=== PATIENT | female | born 1985 | race Caucasian/White ===

== ENCOUNTER 2023-08-31 16:16 | Inpatient (IN) ==
[2023-08-31] MEDS ORDERED: SODIUM CHLORIDE 0.9% 1,000 ML IV ONE (16:29)
[2023-08-31] MEDS ORDERED: MoRPHine SULFATE 4 MG/ML 1 ML CARP\\VIAL IV STA ×2 (16:29→18:44)
--- NOTE | 2023-08-31 16:42 | Emergency Department Note ---
Impression & Plan Pulmonary embolism, DVT (deep venous thrombosis), Chest pain ED Provider Note NAME: MARIA TERESA TRIVEDI AGE: 38 SEX: F : 1985 ARRIVES VIA: Ambulance INFORMANT: Patient ED PROVIDER(S): Benjamin Landrum DO CHIEF COMPLAINT: back pain HPI: Patient is a 38-year-old female who presents the ER for mid to right upper scapula pain. Pain has been present for the past 24 hours. She denies any chest pain or shortness of breath but notes it is painful with breathing. Does have a history of previous PEs. She had a right labrum repair done initially in June and then it failed her early July. She notes when she stands for the past several weeks she has been having her feet turn blue. She denies any tingling, numbness or weakness. No belly pain, nausea, vomiting, or diarrhea. No dysuria, urgency, or frequency. Previous history of a previous PE 20 years ago. Her surgeon just placed her on Eliquis on the fourth as prophylaxis. She has been taking it since then. Mom provided the history in regards to her previous PE 20 years ago as she was at bedside ADDITIONAL HISTORY OBTAINED: Per HPI Chronic Medical/Social Conditions Affecting Care: Per HPI PAST MEDICAL HISTORY:See Below PAST SURGICAL HISTORY:See Below FAMILY HISTORY:See Below SOCIAL HISTORY:See Below HOME MEDICATIONS:See Below ALLERGIES:See Below VITALS:See Below PHYSICAL EXAMINATION: GENERAL: Sitting up in bed, alert, well appearing, well nourished, no distress, non-toxic EYE EXAM: normal conjunctiva. PERRL and EOM's grossly intact. OROPHARYNX: no exudate, no erythema, lips, buccal mucosa, and tongue normal and mucous membranes are moist NECK: supple, no nuchal rigidity, no adenopathy, non-tender LUNGS: Clear to auscultation. Normal chest wall mechanics HEART: no murmurs, S1 normal and S2 normal ABDOMEN: abdomen soft, non-tender, normo-active bowel sounds, no masses, no rebound or guarding. UPPER EXTREMITIES: upper extremities are grossly normal. LOWER EXTREMITIES: Flexion extension of the right knee and ankle intact. DPs and PTs 1 out of 4 bilaterally. Good cap refill NEURO EXAM: Normal sensorium, cranial nerves II-XII grossly intact, normal speech, no gross weakness of arms, no gross weakness of legs. MEDICAL DECISION MAKING: Patient is a 38-year-old female who presents ER for above-stated complaint. IV was established and blood work was obtained. Labs show no significant leukocytosis or anemia. BMP along with LFTs bilirubin was unremarkable. Troponin was negative. Lipase was normal. UA was clean. was negative. Duplex of the right lower extremity shows DVT. CT angio of the chest shows PEs. X-ray of the hip and pelvis shows no acute fracture. Patient was updated bedside. She denies any recent surgeries other than the right hip. No coughing up blood, urinating blood, or vomiting blood. No black or dark tarry stools. No previous brain bleeds. Patient was placed on heparin drip and bolus. She was discussed with the hospitalist Dr. Merino for further evaluation management treatment. External Records Reviewed: None Consults/Care Managements Discussions: Per [facility] Triage Nursing notes reviewed. Limited review of prior medical records performed Vital Signs: reviewed and remarkable for no significant abnormalities Differential diagnosis: Cardiac ischemia, aortic dissection, pulmonary embolism, pneumothorax, pneumonia, pericarditis, myocarditis, esophageal rupture, GERD, cholecystitis, pancreatitis, musculoskeletal, as well as other pathologies. ER treatment provided: See below Diagnostics interpreted by me include EKG and cardiac monitoring as listed below: -Cardiac Monitoring: An order was placed for continuous cardiac monitoring. The monitor shows a rate of 80 with sinus rhythm. -ECG: Sinus rhythm rate of 60 Normal axis No PVCs T wave inversion in lead III -Laboratory studies:Interpreted by me as stated above in MDM and shown below. Imaging studies: Xrays: As interpreted by me: X-ray right hip and pelvis show no acute fracture dislocation CTs show: CT angio chest shows PEs Duplex was was positive for DVT Procedures:none Critical Care: I have personally spent 31 minutes of critical care time in the direct management of this patient. This includes bedside care, interpretation of diagnostic studies, and testing, discussion with consultants, patient, and family members, and other required patient management activities. This 31 minutes is in excess of all separately billable procedures. Past Med/Surg History Social History Smoking Status: Never smoker Preferred Language: Martiniquais Feels Safe at Home: Yes Home Meds Home Medications Medication Instructions Recorded Confirmed apixaban 2.5 mg tablet (Eliquis) 2.5 mg PO BID 08/31/23 08/31/23 dexlansoprazole 60 mg 60 mg PO DAILY 08/31/23 08/31/23 capsule,biphase delayed release diazepam 5 mg tablet 5 mg PO Q6 PRN Anxiety 08/31/23 08/31/23 duloxetine 30 mg capsule,delayed mg PO 08/31/23 release epinephrine 0.3 mg/0.3 mL 0.3 mg IM UD PRN Allergic Reaction 08/31/23 08/31/23 injection, auto-injector folic acid 1 mg tablet 1 mg PO [id number] 08/31/23 08/31/23 galcanezumab-gnlm 120 mg/mL 120 mg subcut UD 08/31/23 08/31/23 subcutaneous pen injector (Emgality Pen) hydrocodone 5 mg-acetaminophen 325 1 tab PO .EVERY 4-6 HOURS PRN Pain 08/31/23 08/31/23 mg tablet hydroxychloroquine 200 mg tablet 400 mg PO DAILY 08/31/23 08/31/23 methotrexate sodium 2.5 mg tablet 20 mg PO WK 08/31/23 08/31/23 potassium chloride 20 mEq 20 meq PO DAILY 08/31/23 08/31/23 tablet,extended release(part/cryst) (Klor-Con M) topiramate 25 mg tablet 25 mg PO AMHS 08/31/23 08/31/23 Results & Data (ED) Vital Signs Vital Signs - 24 hr 08/31/23 16:44 08/31/23 16:49 08/31/23 17:31 Pulse Rate 74 74 Pulse Rate from SpO2 Sensor Pulse Rhythm Regular Pulse Strength Normal Respiratory Rate 20 Respiratory Effort / Characteristics Non-Labored Spontaneous Respiratory Depth Normal Respiratory Pattern Regular Blood Pressure 108/67 Blood Pressure Mean 80 Blood Pressure Position Sitting Pulse Oximetry 100 100 Oxygen Delivery Method Room Air Room Air Sepsis Recent Fever Within 48 Hours No Sepsis New/Unexplained Change in Mental Status No Sepsis Action Taken by Nursing No Action Required 08/31/23 18:49 Pulse Rate 76 Pulse Rate from SpO2 Sensor 78 Pulse Rhythm Pulse Strength Respiratory Rate 19 Respiratory Effort / Characteristics Respiratory Depth Respiratory Pattern Blood Pressure 114/62 Blood Pressure Mean 79 Blood Pressure Position Pulse Oximetry 100 Oxygen Delivery Method Room Air Sepsis Recent Fever Within 48 Hours Sepsis New/Unexplained Change in Mental Status Sepsis Action Taken by Nursing Laboratory Data 08/31/23 16:25 08/31/23 16:25 Lab Results 08/31/23 08/31/23 08/31/23 Range/Units 16:25 16:25 16:55 WBC 5.91 (4.8-10.8) K/ul RBC 4.36 (4.20-5.40) M/uL Hgb 14.0 (12.0-16.0) g/dl POC Hgb 13.6 (12.0-16.0) g/dl Hct 41.5 (37.0-47.0) % POC Hct 40 (37-47) % MCV 95.2 (80.0-100.0) fL MCH 32.1 (25.0-34.0) pg MCHC 33.7 (32.0-36.0) g/dL RDW Std Deviation 47.4 H (36.4-46.3) fL RDW Coeff of Jose 13.6 (11.5-14.5) % Plt Count 235 (130-400) K/uL MPV 9.9 (9.4-12.4) fL Immature Gran % (Auto) 0.2 % Neut % (Auto) 52.8 % Lymph % (Auto) 33.0 % [place] % (Auto) 10.0 % Eos % (Auto) 3.0 % Baso % (Auto) 1.0 % Neut # (Auto) 3.12 (1.40-6.50) K/uL Lymph # (Auto) 1.95 (1.20-3.40) K/uL [place] # (Auto) 0.59 (0.11-0.59) K/uL Eos # (Auto) 0.18 (0.00-0.50) K/uL Baso # (Auto) 0.06 (0.00-0.20) K/uL Immature Gran # (Auto) 0.01 (0.01-0.20) K/uL POC Sodium 140 (135-144) mmol/L Sodium 138 (136-145) mmol/L POC Potassium 4.7 (3.3-5.0) mmol/L Potassium 3.3 L (3.5-5.1) mmol/L POC Chloride 108 (101-112) mmol/L Chloride 110 H (98-107) mmol/L Carbon Dioxide 22 (21-32) mmol/L POC Total CO2 23 L (24-31) mmol/L Anion Gap 6 (3-11) POC Anion Gap 16.0 (16-25) mmol/L POC BUN 11 (7-18) mg/dl BUN 11 (6-23) mg/dl Creatinine 1.06 (0.6-1.2) mg/dl POC Creatinine 1.1 (0.6-1.3) mg/dl Est Cr Clr Drug Dosing 75.2 ml/min Est GFR ( Amer) 76.6 ml/min Est GFR (Non-Af Amer) 66.1 ml/min BUN/Creatinine Ratio 10.4 (10-20) Glucose 85 (70-99(Fasting)) mg/dl POC Glucose (other) 92 (70-99) mg/dl Calcium 8.4 L (8.6-10.3) mg/dl POC Ioniz Calcium Idris 1.17 (1.12-1.32) mmol/l Total Bilirubin 0.4 (0.2-1.0) mg/dl AST 36 (13-39) U/L ALT 57 H (7-52) U/L Alkaline Phosphatase 60 (34-104) U/L Troponin I High Sens 2.6 (0-14) pg/ml Total Protein 5.9 L (6.0-8.3) gm/dl Albumin 3.9 (3.4-5.0) gm/dl Globulin 2.0 L (2.5-4.0) gm/dl Albumin/Globulin Ratio 2.0 (0.9-2) Lipase 38 (11-82) U/L Urine Color Urine Appearance (Clear) Urine pH (4.5-7.5) Ur Specific [place] (1.000-1.030) Urine Protein (Negative) Urine Glucose (UA) (Negative) Urine Ketones (Negative) Urine Blood (Negative) Urine Nitrite (Negative) Urine Bilirubin (Negative) Urine Urobilinogen (Negative) Ur Leukocyte Esterase (Negative) POC Ur Test (NEG) 08/31/23 08/31/23 Range/Units 18:47 18:47 WBC (4.8-10.8) K/ul RBC (4.20-5.40) M/uL Hgb (12.0-16.0) g/dl POC Hgb (12.0-16.0) g/dl Hct (37.0-47.0) % POC Hct (37-47) % MCV (80.0-100.0) fL MCH (25.0-34.0) pg MCHC (32.0-36.0) g/dL RDW Std Deviation (36.4-46.3) fL RDW Coeff of Jose (11.5-14.5) % Plt Count (130-400) K/uL MPV (9.4-12.4) fL Immature Gran % (Auto) % Neut % (Auto) % Lymph % (Auto) % [place] % (Auto) % Eos % (Auto) % Baso % (Auto) % Neut # (Auto) (1.40-6.50) K/uL Lymph # (Auto) (1.20-3.40) K/uL [place] # (Auto) (0.11-0.59) K/uL Eos # (Auto) (0.00-0.50) K/uL Baso # (Auto) (0.00-0.20) K/uL Immature Gran # (Auto) (0.01-0.20) K/uL POC Sodium (135-144) mmol/L Sodium (136-145) mmol/L POC Potassium (3.3-5.0) mmol/L Potassium (3.5-5.1) mmol/L POC Chloride (101-112) mmol/L Chloride (98-107) mmol/L Carbon Dioxide (21-32) mmol/L POC Total CO2 (24-31) mmol/L Anion Gap (3-11) POC Anion Gap (16-25) mmol/L POC BUN (7-18) mg/dl BUN (6-23) mg/dl Creatinine (0.6-1.2) mg/dl POC Creatinine (0.6-1.3) mg/dl Est Cr Clr Drug Dosing ml/min Est GFR ( Amer) ml/min Est GFR (Non-Af Amer) ml/min BUN/Creatinine Ratio (10-20) Glucose (70-99(Fasting)) mg/dl POC Glucose (other) (70-99) mg/dl Calcium (8.6-10.3) mg/dl POC Ioniz Calcium Idris (1.12-1.32) mmol/l Total Bilirubin (0.2-1.0) mg/dl AST (13-39) U/L ALT (7-52) U/L Alkaline Phosphatase (34-104) U/L Troponin I High Sens (0-14) pg/ml Total Protein (6.0-8.3) gm/dl Albumin (3.4-5.0) gm/dl Globulin (2.5-4.0) gm/dl Albumin/Globulin Ratio (0.9-2) Lipase (11-82) U/L Urine Color Yellow Urine Appearance Clear (Clear) Urine pH 7.5 (4.5-7.5) Ur Specific [place] 1.017 (1.000-1.030) Urine Protein Negative (Negative) Urine Glucose (UA) Negative (Negative) Urine Ketones Negative (Negative) Urine Blood Negative (Negative) Urine Nitrite Negative (Negative) Urine Bilirubin Negative (Negative) Urine Urobilinogen Negative (Negative) Ur Leukocyte Esterase Negative (Negative) POC Ur Test NEG (NEG) Administered Medications Discontinued Medications Sodium Chloride (Nss) 1,000 mls @ 999 mls/hr IV .Q1H1M ONE Stop: 08/31/23 17:29 Last Infusion: 08/31/23 18:30 Dose: 0 mls/hr Documented By: Admin: 08/31/23 16:43 Dose: 999 mls/hr Documented By: MARIEL Ioversol (Optiray 320 500ml) 116 ml IV ONCE ONE Stop: 08/31/23 17:49 Last Admin: 08/31/23 17:48 Dose: 116 ml Documented By: ERIC Morphine Sulfate (Morphine Sulfate 4 Mg/Ml 1 Ml Carp\Vial) 4 mg IV NOW STA Stop: 08/31/23 16:30 Last Admin: 08/31/23 16:43 Dose: 4 mg Documented By: MARIEL Imaging Data Radiologist's Impression: Chest CTA 08/31/23 16:29 CT ANGIOGRAM OF THE CHEST CLINICAL HISTORY: Cough. Atypical chest pain. COMPARISON STUDY: No priors. TECHNIQUE: Following the IV administration of 116 cc of Optiray 320, CT angiogram of the chest was performed from the upper abdomen to the thoracic inlet utilizing the pulmonary embolus protocol. Images are reviewed in the axial, sagittal, and coronal planes. 3-D MIPS images are created and assessed. IV contrast was administered without complication. A dose lowering technique was utilized adhering to the principles of ALARA. CT DOSE: 887.35 mGy.cm FINDINGS: Thyroid: Imaged portions of the thyroid gland are normal in size and attenuation. Thoracic aorta: The thoracic aorta is normal in caliber and demonstrates 4- vessel variant arch anatomy. No dissection is seen. Pulmonary vasculature: The pulmonary trunk is normal in caliber. There is a linear filling defect identified within a segmental branch of the right upper lobe pulmonary artery on image #131. This is consistent with age indeterminant pulmonary embolus. No additional filling defects are identified in the main, lobar, or segmental pulmonary branches to indicate pulmonary emboli. Evaluation of the segmental and subsegmental branches in the lower lobes are significantly degraded by motion artifact. Heart: The heart is normal in size and without pericardial effusion. Lungs and pleural spaces: Evaluation of the lung parenchyma is degraded by motion artifact. No airspace consolidation or pleural effusion is seen. The trachea and central airways are clear. Mediastinum: There is no mediastinal lymphadenopathy. Sharona: Clear. Axillae: There is no axillary lymphadenopathy. Upper abdomen: Cholecystectomy clips are noted. Partially visualized upper abdominal viscera is otherwise within normal limits. Skeletal structures: No lytic or blastic bony lesions are seen. There is hyperkyphosis of the thoracic spine. IMPRESSION: 1. There is age indeterminant pulmonary embolus within a segmental branch of the right upper lobe pulmonary artery. 2. No additional filling defects are identified in the main, lobar, or segmental pulmonary vessels to indicate pulmonary embolus. Note that evaluation of the segmental and subsegmental branches of the lower lobe pulmonary arteries is significantly degraded by motion artifact. 3. No airspace consolidation or pleural effusion is identified. 4. Additional findings as above. ACT 112: Negative or not required by law. Electronically signed by: Usama Harrison M.D. 08/31/2023 6:01 PM Venous Doppler Study 08/31/23 16:29 ULTRASOUND RIGHT LOWER EXTREMITY VENOUS CLINICAL HISTORY: Right leg pain. History of recent hip surgery. Swelling. COMPARISON STUDY: No priors. TECHNIQUE: Real-time, grayscale, and color Doppler sonography of the deep veins of the right lower extremity was performed from the inguinal crease to the calf. Compression and augmentation were utilized. FINDINGS: There is occlusive deep venous thrombosis identified in the right calf within one of the posterior tibial veins and one of the peroneal veins. The remaining calf vessels appear clear. The common femoral, superficial femoral, and popliteal veins are patent and normally compressible. The greater saphenous vein and the profunda femoris vein at the junction with the common femoral vein are clear. IMPRESSION: Occlusive deep venous thrombosis in the right calf as above. ACT 112: Negative or not required by law. Electronically signed by: Usama Harrison M.D. 08/31/2023 6:32 PM Hip/Pelvis X-Ray 08/31/23 16:49 SINGLE VIEW PELVIS; 2 VIEWS RIGHT HIP CLINICAL HISTORY: Right hip pain. FINDINGS: An AP view of the pelvis with AP and frog-leg views of the right hip are obtained. No prior studies are available for comparison at the time of dictation. The skeletal structures well mineralized. There is no radiographic evidence of acute fracture involving the hips or bony pelvis. The joint spaces of the hips are maintained. There is degenerative sclerosis of the sacroiliac joints. The overlying soft tissues are within normal limits. An intrauterine device projects over the pelvis. Suture material projects over the right midabdomen. IMPRESSION: No acute bony abnormality is identified. Electronically signed by: Usama Harrison M.D. 08/31/2023 6:02 PM Discharge Plan Visit Data Chief Complaint: Leg Injury/Pain ED Provider: Benjamin Landrum Discharge Problem: Pulmonary embolism, DVT (deep venous thrombosis), Chest pain Forms Stand Alone Forms: My [facility] [place] [employer] Prescriptions Prescriptions: No Action hydrocodone-acetaminophen 5-325 mg tablet 1 tab PO .EVERY 4-6 HOURS PRN (Reason: Pain) topiramate 25 mg tablet 25 mg PO AMHS potassium chloride [Klor-Con M20] 20 mEq tablet,ER particles/crystals 20 meq PO DAILY methotrexate sodium 2.5 mg tablet 20 mg PO WK Rx Instructions: take 8 tablets on MONDAYS folic acid 1 mg tablet 1 mg PO [id number] Rx Instructions: take every day except MONDAYS hydroxychloroquine 200 mg tablet 400 mg PO DAILY epinephrine 0.3 mg/0.3 mL auto-injector 0.3 mg IM UD PRN (Reason: Allergic Reaction) diazepam 5 mg tablet 5 mg PO Q6 PRN (Reason: Anxiety) duloxetine 30 mg capsule,delayed release(DR/EC) PO dexlansoprazole 60 mg capsule,biphase delayed releas 60 mg PO DAILY Eliquis 2.5 mg tablet 2.5 mg PO BID Rx Instructions: x 2 weeks Emgality Pen 120 mg/mL pen injector 120 mg SUBCUT UD Referrals Referrals: PCP,NO [Primary Care Provider] -
[2023-08-31 17:07] LABS: iSTAT Creatinine 1.1 mg/dl (0.6-1.3); iSTAT Hemoglobin 13.6 g/dl (12.0-16.0); iSTAT Ionized Calcium 1.17 mmol/l (1.12-1.32); iSTAT Potassium 4.7 mmol/L (3.3-5.0)
[2023-08-31 17:10] LABS: Basophils # (auto) 0.06 K/uL (0.00-0.20); Eosinophils # (auto) 0.18 K/uL (0.00-0.50); Hematocrit (blood only) 41.5 % (37.0-47.0); Immature Granulocytes # (auto) 0.01 K/uL (0.01-0.20); Immature Granulocytes % (auto) 0.2 %; Lymphocytes # (auto) 1.95 K/uL (1.20-3.40); Mean Corpuscular Hemoglobin 32.1 pg (25.0-34.0); Mean Corpuscular Hgb Conc 33.7 g/dL (32.0-36.0); Mean Corpuscular Volume 95.2 fL (80.0-100.0); Mean Platelet Volume 9.9 fL (9.4-12.4); Monocytes # (auto) 0.59 K/uL (0.11-0.59); Neutrophils # (auto) 3.12 K/uL (1.40-6.50); Neutrophils % (auto) 52.8 %; Platelet Count 235 K/uL (130-400); RDW Coefficient of Variation 13.6 % (11.5-14.5); RDW Standard Deviation 47.4 fL (36.4-46.3); Red Blood Count 4.36 M/uL (4.20-5.40); White Blood Count 5.91 K/ul (4.8-10.8)
[2023-08-31 17:30] LABS: Albumin Level 3.9 gm/dl (3.4-5.0); BUN Creatinine Ratio 10.4 (10-20); Bilirubin,Total 0.4 mg/dl (0.2-1.0); Calcium 8.4 mg/dl (8.6-10.3); Creatinine Clr Calc Pharmacy 75.2 ml/min; Est GFR (African American) 76.6 ml/min; Est GFR (Non-African American) 66.1 ml/min; Potassium 3.3 mmol/L (3.5-5.1); Total Protein 5.9 gm/dl (6.0-8.3)
[2023-08-31 17:36] LABS: Troponin I High Sensitivity 2.6 pg/ml (0-14)
[2023-08-31] MEDS ORDERED: OPTIRAY 320 500ml IV ONE (17:48)
--- NOTE | 2023-08-31 18:03 | XRay Report ---
SINGLE VIEW PELVIS; 2 VIEWS RIGHT HIP CLINICAL HISTORY: Right hip pain. FINDINGS: An AP view of the pelvis with AP and frog-leg views of the right hip are obtained. No prior studies are available for comparison at the time of dictation. The skeletal structures well minerali zed. There is no radiographic evidence of acute fracture involving the hips or bony pelvis. The joint spaces of the hips are maintained. There is degenerative sclerosis of the sacroiliac joints. The ove rlying soft tissues are within normal limits. An intrauterine device projects over the pelvis. Suture material projects over the right midabdomen. IMPRESSION: No acute bony abnormality is identified. Electronically signed by: Usama Harrison M.D. 08/31/2023 6:02 PM
--- NOTE | 2023-08-31 18:03 | CT Scan Report ---
CT ANGIOGRAM OF THE CHEST CLINICAL HISTORY: Cough. Atypical chest pain. COMPARISON STUDY: No priors. TECHNIQUE: Following the IV administration of 116 cc of Optiray 320, CT angiogram of the chest was pe rformed from the upper abdomen to the thoracic inlet utilizing the pulmonary embolus protocol. Images are reviewed in the axial, sagittal, and coronal planes. 3-D MIPS images are created and assessed. I V contrast was administered without complication. A dose lowering technique was utilized adhering to the principles of ALARA. CT DOSE: 887.35 mGy.cm FINDINGS: Thyroid: Imaged portions of the thyroid gland are normal in size and attenuation. Thoracic aorta: The thoracic aorta is normal in caliber and demonstrates 4-vessel variant arch anatom y. No dissection is seen. Pulmonary vasculature: The pulmonary trunk is normal in caliber. There is a linear filling defect melissa ntified within a segmental branch of the right upper lobe pulmonary artery on image #131. This is con sistent with age indeterminant pulmonary embolus. No additional filling defects are identified in the main, lobar, or segmental pulmonary branches to indicate pulmonary emboli. Evaluation of the segment al and subsegmental branches in the lower lobes are significantly degraded by motion artifact. Heart: The heart is normal in size and without pericardial effusion. Lungs and pleural spaces: Evaluation of the lung parenchyma is degraded by motion artifact. No airspa ce consolidation or pleural effusion is seen. The trachea and central airways are clear. Mediastinum: There is no mediastinal lymphadenopathy. Sharona: Clear. Axillae: There is no axillary lymphadenopathy. Upper abdomen: Cholecystectomy clips are noted. Partially visualized upper abdominal viscera is other mir within normal limits. Skeletal structures: No lytic or blastic bony lesions are seen. There is hyperkyphosis of the thoraci c spine. IMPRESSION: 1. There is age indeterminant pulmonary embolus within a segmental branch of the right upper lobe pul monary artery. 2. No additional filling defects are identified in the main, lobar, or segmental pulmonary vessels to indicate pulmonary embolus. Note that evaluation of the segmental and subsegmental branches of the l ower lobe pulmonary arteries is significantly degraded by motion artifact. 3. No airspace consolidation or pleural effusion is identified. 4. Additional findings as above. ACT 112: Negative or not required by law. Electronically signed by: Usama Harrison M.D. 08/31/2023 6:01 PM
--- NOTE | 2023-08-31 18:33 | Ultrasound Report ---
ULTRASOUND RIGHT LOWER EXTREMITY VENOUS CLINICAL HISTORY: Right leg pain. History of recent hip surgery. Swelling. COMPARISON STUDY: No priors. TECHNIQUE: Real-time, grayscale, and color Doppler sonography of the deep veins of the right lower ex tremity was performed from the inguinal crease to the calf. Compression and augmentation were utilize d. FINDINGS: There is occlusive deep venous thrombosis identified in the right calf within one of the po sterior tibial veins and one of the peroneal veins. The remaining calf vessels appear clear. The comm on femoral, superficial femoral, and popliteal veins are patent and normally compressible. The greate r saphenous vein and the profunda femoris vein at the junction with the common femoral vein are clear . IMPRESSION: Occlusive deep venous thrombosis in the right calf as above. ACT 112: Negative or not required by law. Electronically signed by: Usama Harrison M.D. 08/31/2023 6:32 PM
[2023-08-31] MEDS ORDERED: Heparin IV Adult Wt-Based Standard WITH Bolus Protocol IV STA (18:44)
[2023-08-31 18:56] LABS: Appearance Urine Clear (Clear); Bilirubin Urine Negative (Negative); Blood Urine Negative (Negative); Color Urine Yellow; Glucose Urine UA Negative (Negative); Ketones Urine Negative (Negative); Leukocyte Esterase Urine Negative (Negative); Nitrite Urine Negative (Negative); Protein Urine Negative (Negative); Specific Gravity Urine 1.017 (1.000-1.030); Urobilinogen Urine Negative (Negative); pH Urine 7.5 (4.5-7.5)
[2023-08-31] MEDS ORDERED: HEPARIN SOD (PORCINE) 1000 UNIT/ML IV ONE (18:59)
[2023-08-31] MEDS ORDERED: HEPARIN SODIUM/DEXTROSE 25,000 UNITS/500 ML BAG IV SCH (19:00)
[2023-08-31] MEDS ORDERED: Patient's ALLERGY Info needs ENTERED SCH (19:15)
[2023-08-31] MEDS ORDERED: Heparin IV Adult Wt-Based Standard WITH Bolus Protocol IV SCH (19:15)
[2023-08-31] MEDS ORDERED: POTASSIUM CHLORIDE CRTAB 20 MEQ TABCR PO STA (19:34)
[2023-08-31 19:43] LABS: Partial Thromboplastin Time 28.8 Seconds (21.0-31.0); Prothrombin Time 11.1 Seconds (9.0-12.0)
[2023-08-31] MEDS: diazePAM 5 MG TABLET PO PRN (20:38)
[2023-08-31] MEDS ORDERED: oxyCODONE HCL IR 5 MG TAB (IMMEDIATE RELEASE) PO STA (20:49)
--- NOTE | 2023-08-31 21:08 | History & Physical Report ---
Date of Service August 31, 2023 Assessment & Plan (1) Pulmonary embolism: Plan: Recurrent PE now with RLE DVT Past history PE status post Coumadin (2005) Probable hypercoagulable state (hx of lupus anticoagulant, MTHFR mutation on previous testing), family history of blood clots Patient predisposed by immobility secondary to uncontrolled right hip pain last month, hx R hip surgery (04/2023) Recent outpatient prescription of Eliquis prophylactic dose by orthopedic surgeon hx rheumatoid arthritis GERD, stable on regimen gastroparesis on domperidone prescribed by [facility] [place] specialist anxiety/mood disorder, suboptimal due to uncontrolled right hip pain past tobacco abuse Medical telemetry IV heparin for now Will likely need lifelong anticoagulation. [facility] consult as per patient's mother request Re: Uncontrolled right hip pain, hx labral tear surgery (04/2023) Hold Eliquis therapeutic doses until patient seen by orthopedics. Retrieve records from patient's orthopedic surgeon (Dr. Dinh of [facility]) Continue patient home domperidone once copy of IND approval obtained from patient's GI specialist office (Marcela Hewitt PA-C of [facility]). Analgesia, anxiolytic as needed Inpatient psychiatry consult for worsening depression and anxiety as per patient's mother request DVT prophylaxis. IV heparin while Eliquis on hold Full code Patient mother requesting updates for providers. Ms. Betina Kaur, contact #[phone]. Text document was generated using [employer] voice recognition software. It may contain grammatical or spelling errors. Kindly contact undersigned for clarification of any documentation item in question. History of Present Illness Chief Complaint: RLE swelling Primary Care Provider: Dr. Baljinder [facility] La [facility] of [facility] History obtained from patient, family, and records. Patient is a current resident of [place], [place] who has been in town since last week to be cared for by her mother who lives locally following progressive disability from right hip pain since last month. Medical history significant for history PE status post Coumadin, hx of lupus anticoagulant, MTHFR mutation, rheumatoid arthritis, GERD, gastroparesis, anxiety/mood disorder, past tobacco abuse. Last [facility] confinement February 2006 for right lower lobe pulmonary embolism 1 week after appendectomy done at [facility]. Patient was at student at [facility] at time of urgent surgery and was recuperating back home in [facility]. Patient was a smoker and taking OCP at the time of incident. Lupus anticoagulant, 1 copy of C677T MTHFR mutation and 1 copy of a 1298C mutation detected as per documentation. 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 Patient underwent elective right hip surgery for labral tear by [facility]ist last April 2023. Right hip pain initially controlled after procedure. Last month, patient noted worsening right hip pain after she pushed a table. Uncontrolled pain and decreased mobility over the last few weeks. Patient does not feel her surgeon is listening to her. No fever, no chills, no chest pain, no SOB. Patient moved in with mother last week to get help from increasing disability from right hip pain. Pain so bad that patient mood and anxiety are worse. Fleeting thoughts of taking all her pills to end her pain. No current suicidal ideations. Patient and mother contemplating getting a second opinion for patient's worsening right hip pain complaints. Right lower leg noted to be swollen last week. Patient requested [place] surgeon to prescribe her prophylactic medication for blood clots given her history. Eliquis 2.5 mg p.o. twice daily subsequently prescribed. This afternoon, patient noted right upper shoulder pain. Increase RLE swelling noted today despite Eliquis intake. No chest pain or SOB at home. No abdominal pain. Occasional bleeding from hemorrhoids. Patient brought to ER for evaluation. Substernal chest pain and shortness of breath while waiting for testing. 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 Allergies Allergy/AdvReac Type Severity Reaction Status Date / Time amoxicillin Allergy Severe Hives Verified 08/31/23 19:51 ciprofloxacin Allergy Severe Hives Verified 08/31/23 19:51 clarithromycin [From Biaxin] Allergy Severe Hives Verified 08/31/23 19:51 dexamethasone [From Maxitrol] Allergy Severe itching Verified 08/31/23 19:51 herbal drugs [From Ricola] Allergy Severe Anaphylaxis Verified 08/31/23 19:51 infliximab [From Remicade] Allergy Severe DILE Verified 08/31/23 19:51 menthol [From Ricola] Allergy Severe Anaphylaxis Verified 08/31/23 19:51 neomycin [From Maxitrol] Allergy Severe itching Verified 08/31/23 19:51 Penicillins Allergy Severe Hives Verified 08/31/23 19:51 polymyxin B [From Maxitrol] Allergy Severe itching Verified 08/31/23 19:51 celecoxib [From Celebrex] AdvReac Severe Abdominal Verified 08/31/23 19:51 Pain moxifloxacin [From Vigamox] AdvReac Severe itching Verified 08/31/23 19:51 sulfamethoxazole AdvReac Severe Abdominal Verified 08/31/23 19:51 [From Bactrim] Pain trimethoprim [From Bactrim] AdvReac Severe Abdominal Verified 08/31/23 19:51 Pain doxycycline AdvReac Intermediate Diarrhea Verified 08/31/23 19:51 adalimumab [From Humira] AdvReac does not Verified 08/31/23 19:51 work etanercept [From Enbrel] AdvReac amplifies Verified 08/31/23 19:51 migraines Home Medications Medication Instructions Recorded Confirmed Type Bacillus coagulans 2 billion 1 cap PO DAILY 08/31/23 08/31/23 History cell-calcium 140 mg capsule (Digestive Advantage Probiotic) Domperidone 10 mg PO TIDWMEAL 08/31/23 08/31/23 History Medical Marijuana See Rx Instructions .Route .COMPLEX 08/31/23 08/31/23 History albuterol sulfate 90 mcg/actuation 2 puff inhalation BID PRN breathing 08/31/23 08/31/23 History aerosol inhaler apixaban 2.5 mg tablet (Eliquis) 2.5 mg PO BID 08/31/23 08/31/23 History baclofen 20 mg tablet 20 mg PO HS PRN Muscle Spasm 08/31/23 08/31/23 History acfvzer-izx-tsp V4-N1-qdhucmgo 250 1 tab PO DAILY 08/31/23 08/31/23 History mg-40 mg-5 mg-125 unit tablet cholecalciferol (vitamin D3) 50 50 mcg PO QAM 08/31/23 08/31/23 History mcg (2,000 unit) tablet (Vitamin D3) cyclobenzaprine 5 mg tablet 5 - 10 mg PO BID PRN pain/spasm 08/31/23 08/31/23 History dexlansoprazole 60 mg 60 mg PO QAM 08/31/23 08/31/23 History capsule,biphase delayed release diazepam 5 mg tablet 5 mg PO Q6 PRN Anxiety 08/31/23 08/31/23 History diphenhydramine HCl 25 mg tablet 25 - 50 mg PO HS PRN Allergy 08/31/23 08/31/23 History (Benadryl Allergy) Symptoms duloxetine 30 mg capsule,delayed 90 mg PO DAILY 08/31/23 08/31/23 History release eletriptan 40 mg tablet (Relpax) 40 mg PO UD 08/31/23 08/31/23 History epinephrine 0.3 mg/0.3 mL 0.3 mg IM UD PRN Allergic 08/31/23 08/31/23 History injection, auto-injector Reaction,severe folic acid 1 mg tablet 1 mg PO 6XWK 08/31/23 08/31/23 History galcanezumab-gnlm 120 mg/mL 120 mg subcut MONTHLY 08/31/23 08/31/23 History subcutaneous pen injector (Emgality Pen) hydrocodone 5 mg-acetaminophen 325 1 tab PO .EVERY 4-6 HOURS PRN Pain 08/31/23 08/31/23 History mg tablet hydroxychloroquine 200 mg tablet 200 mg PO BID 08/31/23 08/31/23 History levocetirizine 5 mg tablet (Xyzal) 5 mg PO .ON HOLD AT PRESENT 08/31/23 08/31/23 History magnesium oxide 400 mg PO DAILY 08/31/23 08/31/23 History methotrexate sodium 2.5 mg tablet 20 mg PO WK 08/31/23 08/31/23 History methylprednisolone 0 mg PO UD y 08/31/23 08/31/23 History multivit,Ca,vzh-ijgw-NR-guarana-caff 1 tab PO DAILY 08/31/23 08/31/23 History 18 mg iron-400 mcg-180 mg tablet potassium chloride 20 mEq 20 meq PO QAM 08/31/23 08/31/23 History tablet,extended release(part/cryst) (Klor-Con M) prednisone 10 mg tablet 0 mg PO UD PRN RA flares 08/31/23 08/31/23 History promethazine 12.5 mg tablet 6.25 mg PO Q6 PRN Nausea/vomiting 08/31/23 08/31/23 History topiramate 25 mg tablet 25 mg PO AMHS 08/31/23 08/31/23 History topiramate 50 mg tablet 50 mg PO AMHS 08/31/23 08/31/23 History Past Med/Surg History Social History Smoking Status: Former smoker Second Hand Exposure: No; Do You Dip or Chew Tobacco: No; Tobacco Cessation Education Requested by Patient: No Hx Alcohol Use: Yes Hx Substance Use: Yes Last Used Substance: Days (ago) Last Used Substance Other:: 19 Preferred Language: Ecuadorean Communication Ability: Effective Editor House Organ Required: No Beliefs That Will Affect Care: None Current Living Situation: Spouse Other Information That Helps Us Care for You: No Feels Safe at Home: Yes Safety Concerns: Feels Safe At This Time Assistive Devices: Crutches Review of Systems Review of Systems: As per HPI, all other systems reviewed and negative Physical Exam Physical Exam: GENERAL: Slightly uncomfortable, tearful, obese, no respiratory distress SKIN: Normal color, warm HEENT: [place] palpebral conjunctivae, no ptosis, dry buccal mucosa NECK : Supple, no tenderness CHEST : CTA, no tenderness HEART : RRR, no obvious murmurs ABDOMEN: Some distention, nontender EXTREMITIES : Right hip tenderness, tender RLE swelling NEUROLOGIC : Coherent, no facial asymmetry, no other gross focality Results & Data Results & Data Vital Signs (Past 12 Hours) Vital Signs Pulse Resp BP Pulse Ox O2 Del Method 08/31/23 18:49 76 19 114/62 100 Room Air 08/31/23 17:31 74 08/31/23 16:49 100 Room Air 08/31/23 16:44 74 20 108/67 100 Room Air Laboratory Results Laboratory Results WBC 5.91 K/ul (4.8-10.8) 08/31/23 16:25 RBC 4.36 M/uL (4.20-5.40) 08/31/23 16:25 Hgb 14.0 g/dl (12.0-16.0) 08/31/23 16:25 POC Hgb 13.6 g/dl (12.0-16.0) 08/31/23 16:55 Hct 41.5 % (37.0-47.0) 08/31/23 16:25 POC Hct 40 % (37-47) 08/31/23 16:55 MCV 95.2 fL (80.0-100.0) 08/31/23 16:25 MCH 32.1 pg (25.0-34.0) 08/31/23 16:25 MCHC 33.7 g/dL (32.0-36.0) 08/31/23 16:25 RDW Std Deviation 47.4 fL (36.4-46.3) H 08/31/23 16: RDW Coeff of Jose 13.6 % (11.5-14.5) 08/31/23 16: Plt Count 235 K/uL (130-400) 08/31/23 16:25 MPV 9.9 fL (9.4-12.4) 08/31/23 16:25 Immature Gran % (Auto) 0.2 % 08/31/23 16:25 Neut % (Auto) 52.8 % 08/31/23 16:25 Lymph % (Auto) 33.0 % 08/31/23 16:25 [place] % (Auto) 10.0 % 08/31/23 16:25 Eos % (Auto) 3.0 % 08/31/23 16:25 Baso % (Auto) 1.0 % 08/31/23 16:25 Neut # (Auto) 3.12 K/uL (1.40-6.50) 08/31/23 16:25 Lymph # (Auto) 1.95 K/uL (1.20-3.40) 08/31/23 16:25 [place] # (Auto) 0.59 K/uL (0.11-0.59) 08/31/23 16:25 Eos # (Auto) 0.18 K/uL (0.00-0.50) 08/31/23 16:25 Baso # (Auto) 0.06 K/uL (0.00-0.20) 08/31/23 16:25 Immature Gran # (Auto) 0.01 K/uL (0.01-0.20) 08/31/23 16:25 PT 11.1 Seconds (9.0-12.0) 08/31/23 16:25 INR 1.0 (0.9-1.1) 08/31/23 16:25 APTT 28.8 Seconds (21.0-31.0) 08/31/23 16:25 PTT Ratio 1.0 08/31/23 16:25 POC Sodium 140 mmol/L (135-144) 08/31/23 16:55 Sodium 138 mmol/L (136-145) 08/31/23 16:25 POC Potassium 4.7 mmol/L (3.3-5.0) 08/31/23 16:55 Potassium 3.3 mmol/L (3.5-5.1) L 08/31/23 16:25 POC Chloride 108 mmol/L (101-112) 08/31/23 16:55 Chloride 110 mmol/L (98-107) H 08/31/23 16:25 Carbon Dioxide 22 mmol/L (21-32) 08/31/23 16:25 POC Total CO2 23 mmol/L (24-31) L 08/31/23 16:55 Anion Gap 6 (3-11) 08/31/23 16:25 POC Anion Gap 16.0 mmol/L (16-25) 08/31/23 16:55 POC BUN 11 mg/dl (7-18) 08/31/23 16:55 BUN 11 mg/dl (6-23) 08/31/23 16:25 Creatinine 1.06 mg/dl (0.6-1.2) 08/31/23 16:25 POC Creatinine 1.1 mg/dl (0.6-1.3) 08/31/23 16:55 Est Cr Clr Drug Dosing 75.2 ml/min 08/31/23 16:25 Est GFR ( Amer) 76.6 ml/min 08/31/23 16:25 Est GFR (Non-Af Amer) 66.1 ml/min 08/31/23 16:25 BUN/Creatinine Ratio 10.4 (10-20) 08/31/23 16:25 Glucose 85 mg/dl (70-99(Fasting)) 08/31/23 16:25 POC Glucose (other) 92 mg/dl (70-99) 08/31/23 16:55 Calcium 8.4 mg/dl (8.6-10.3) L 08/31/23 16:25 POC Ioniz Calcium Idris 1.17 mmol/l (1.12-1.32) 08/31/23 16:55 Total Bilirubin 0.4 mg/dl (0.2-1.0) 08/31/23 16:25 AST 36 U/L (13-39) 08/31/23 16:25 ALT 57 U/L (7-52) H 08/31/23 16:25 Alkaline Phosphatase 60 U/L (34-104) 08/31/23 16:25 Troponin I High Sens 2.6 pg/ml (0-14) 08/31/23 16:25 Total Protein 5.9 gm/dl (6.0-8.3) L 08/31/23 16:25 Albumin 3.9 gm/dl (3.4-5.0) 08/31/23 16:25 Globulin 2.0 gm/dl (2.5-4.0) L 08/31/23 16:25 Albumin/Globulin Ratio 2.0 (0.9-2) 08/31/23 16:25 Lipase 38 U/L (11-82) 08/31/23 16:25 Urine Color Yellow 08/31/23 18:47 Urine Appearance Clear (Clear) 08/31/23 18:47 Urine pH 7.5 (4.5-7.5) 08/31/23 18:47 Ur Specific [place] 1.017 (1.000-1.030) 08/31/23 18:47 Urine Protein Negative (Negative) 08/31/23 18:47 Urine Glucose (UA) Negative (Negative) 08/31/23 18:47 Urine Ketones Negative (Negative) 08/31/23 18:47 Urine Blood Negative (Negative) 08/31/23 18:47 Urine Nitrite Negative (Negative) 08/31/23 18:47 Urine Bilirubin Negative (Negative) 08/31/23 18:47 Urine Urobilinogen Negative (Negative) 08/31/23 18:47 Ur Leukocyte Esterase Negative (Negative) 08/31/23 18:47 POC Ur Test NEG (NEG) 08/31/23 18:47 Impressions Chest CTA 08/31/23 16:29 CT ANGIOGRAM OF THE CHEST CLINICAL HISTORY: Cough. Atypical chest pain. COMPARISON STUDY: No priors. TECHNIQUE: Following the IV administration of 116 cc of Optiray 320, CT angiogram of the chest was performed from the upper abdomen to the thoracic inlet utilizing the pulmonary embolus protocol. Images are reviewed in the axial, sagittal, and coronal planes. 3-D MIPS images are created and assessed. IV contrast was administered without complication. A dose lowering technique was utilized adhering to the principles of ALARA. CT DOSE: 887.35 mGy.cm FINDINGS: Thyroid: Imaged portions of the thyroid gland are normal in size and attenuation. Thoracic aorta: The thoracic aorta is normal in caliber and demonstrates 4- vessel variant arch anatomy. No dissection is seen. Pulmonary vasculature: The pulmonary trunk is normal in caliber. There is a linear filling defect identified within a segmental branch of the right upper lobe pulmonary artery on image #131. This is consistent with age indeterminant pulmonary embolus. No additional filling defects are identified in the main, lobar, or segmental pulmonary branches to indicate pulmonary emboli. Evaluation of the segmental and subsegmental branches in the lower lobes are significantly degraded by motion artifact. Heart: The heart is normal in size and without pericardial effusion. Lungs and pleural spaces: Evaluation of the lung parenchyma is degraded by motion artifact. No airspace consolidation or pleural effusion is seen. The trachea and central airways are clear. Mediastinum: There is no mediastinal lymphadenopathy. [place]: Clear. Axillae: There is no axillary lymphadenopathy. Upper abdomen: Cholecystectomy clips are noted. Partially visualized upper abdominal viscera is otherwise within normal limits. Skeletal structures: No lytic or blastic bony lesions are seen. There is hyperkyphosis of the thoracic spine. IMPRESSION: 1. There is age indeterminant pulmonary embolus within a segmental branch of the right upper lobe pulmonary artery. 2. No additional filling defects are identified in the main, lobar, or segmental pulmonary vessels to indicate pulmonary embolus. Note that evaluation of the segmental and subsegmental branches of the lower lobe pulmonary arteries is significantly degraded by motion artifact. 3. No airspace consolidation or pleural effusion is identified. 4. Additional findings as above. ACT 112: Negative or not required by law. Electronically signed by: Usama Harrison M.D. 08/31/2023 6:01 PM Venous Doppler Study 08/31/23 16:29 ULTRASOUND RIGHT LOWER EXTREMITY VENOUS CLINICAL HISTORY: Right leg pain. History of recent hip surgery. Swelling. COMPARISON STUDY: No priors. TECHNIQUE: Real-time, grayscale, and color Doppler sonography of the deep veins of the right lower extremity was performed from the inguinal crease to the calf. Compression and augmentation were utilized. FINDINGS: There is occlusive deep venous thrombosis identified in the right calf within one of the posterior tibial veins and one of the peroneal veins. The remaining calf vessels appear clear. The common femoral, superficial femoral, and popliteal veins are patent and normally compressible. The greater saphenous vein and the profunda femoris vein at the junction with the common femoral vein are clear. IMPRESSION: Occlusive deep venous thrombosis in the right calf as above. ACT 112: Negative or not required by law. Electronically signed by: Usama Harrison M.D. 08/31/2023 6:32 PM Hip/Pelvis X-Ray 08/31/23 16:49 SINGLE VIEW PELVIS; 2 VIEWS RIGHT HIP CLINICAL HISTORY: Right hip pain. FINDINGS: An AP view of the pelvis with AP and frog-leg views of the right hip are obtained. No prior studies are available for comparison at the time of dictation. The skeletal structures well mineralized. There is no radiographic evidence of acute fracture involving the hips or bony pelvis. The joint spaces of the hips are maintained. There is degenerative sclerosis of the sacroiliac joints. The overlying soft tissues are within normal limits. An intrauterine device projects over the pelvis. Suture material projects over the right midabdomen. IMPRESSION: No acute bony abnormality is identified. Electronically signed by: Usama Harrison M.D. 08/31/2023 6:[address] right hip IMPRESSION: 1. No fracture or dislocation. 2. The need for MRI should be determined clinically. Diagnostic Findings EKG could not be located at time of dictation.
[2023-08-31] MEDS ORDERED: NSS + 20MEQ KCL 20 MEQ/1,000 ML BAG IV ONE (21:23)
[2023-08-31] MEDS ORDERED: LORazepam 2 MG/1 ML VIAL IV PRN (21:23)
[2023-08-31 21:49] LABS: Magnesium 1.8 mg/dl (1.7-2.4)
[2023-08-31] MEDS ORDERED: NON-FORMULARY MEDICATION (Domperidone 10 MG) PO SCH (22:41)
[2023-08-31] MEDS ORDERED: CYCLOBENZAPRINE HCL 5 MG TAB PO PRN (22:41)
[2023-08-31] MEDS ORDERED: ACETAMINOPHEN 325 MG TAB PO PRN (22:41)
[2023-08-31] MEDS ORDERED: BACLOFEN 20 MG TAB PO PRN (22:41)
[2023-08-31] MEDS: MoRPHine SULFATE 4 MG/ML 1 ML CARP\\VIAL IV PRN (23:25)
[2023-08-31] MEDS: TOPIRAMATE 25 MG TAB PO SCH (23:27)
[2023-08-31] MEDS: TOPIRAMATE 50 MG TAB PO SCH (23:27)
[2023-08-31] MEDS: HYDROXYCHLOROQUINE SULFATE 200 MG TAB PO SCH (23:28)
--- NOTE | 2023-08-31 23:39 | CT Scan Report ---
Exam(s): CT RIGHT HIP Without Contrast EXAM: CT Right Lower Extremity Without Intravenous Contrast, Hip CLINICAL HISTORY: Reason for exam: worsening pain. TECHNIQUE: Axial computed tomography images of the right hip without intravenous contrast. Automated exposure control was utilized for the study. A dose lowering technique was utilized adhering to the principles of ALARA. COMPARISON: No relevant prior studies available. FINDINGS: Bones/joints: Osseous demineralization. No fracture or dislocation. Soft tissues: Unremarkable. No soft tissue hematoma. Reproductive: IUD in the uterus. Other findings: The need for MRI should be determined clinically. IMPRESSION: 1. No fracture or dislocation. 2. The need for MRI should be determined clinically. Electronically signed by: Kale Stanton MD 08/31/23 23:38 PM
[2023-09-01] MEDS: HEPARIN SODIUM/DEXTROSE 25,000 UNITS/500 ML BAG IV SCH ×2 (00:15→21:50)
--- NOTE | 2023-09-01 07:04 | Communication Note ---
Date of Service: September 01, 2023 38-year-old white female admitted to the hospital early this morning for pulmonary embolus and right lower extremity DVT. Patient with orthopedic history of rheumatoid arthritis and currently on methotrexate as well as hydroxychloroquine. She states that she takes prednisone and/or methylprednisolone at times. She states that they are basically looking for a second opinion for her right hip. She had 2 hip arthroscopies on the right hip. The last one was in April of this year and labral repair was performed. She states that by July of this year that she continued to have increasingly worsening pain to the point where she is now debilitated and is unable to get around like she did. She states that the leg has become very weak due to lack of use/atrophy although she denies any radiculopathy. She is unable to fully weight-bear and states that she is basically weightbearing at best when she does get up. X-rays/CT scan reviewed by myself and noted no fractures/dislocations. Joint spaces noted on plain films appear adequate. CT scan showing no fractures but also showing a little bit more joint narrowing and noted on plain films. Patient would like me to limit the exam and discussion at this time due to the fact that her mother is not with her. She would like her mother to be with her during exam and further questioning. Patient is initially from [place] but is here in [place] with her mother. She states that she likes her orthopedic doctor in [place] but however, they no longer have any answers for her at this time. I will discuss the case with Dr. Tariq and stop back later this afternoon to fully examine the patient and discussed the case with her and her mother. In discussing this case with the patient, an MRI with contrast may be needed. Previous MRI was done near the end of July but without contrast. Full full consult to follow.
[2023-09-01 08:04] LABS: Partial Thromboplastin Ratio 2.3
[2023-09-01 08:14] LABS: Partial Thromboplastin Time 64.3 Seconds (21.0-31.0)
[2023-09-01] MEDS: NON-FORMULARY PATIENT'S OWN MED SCH ×2 (08:24→15:58)
[2023-09-01] MEDS: PANTOprazole 40 MG TAB PO SCH (08:35)
[2023-09-01] MEDS: HYDROXYCHLOROQUINE SULFATE 200 MG TAB PO SCH ×2 (08:35→21:39)
[2023-09-01] MEDS: DULoxetine HCL 30 MG CAP PO SCH (08:35)
[2023-09-01] MEDS: TOPIRAMATE 50 MG TAB PO SCH ×2 (08:36→21:40)
[2023-09-01] MEDS: TOPIRAMATE 25 MG TAB PO SCH ×2 (08:36→21:40)
[2023-09-01] MEDS: diazePAM 5 MG TABLET PO PRN (08:37)
[2023-09-01] MEDS: oxyCODONE HCL IR 5 MG TAB (IMMEDIATE RELEASE) PO PRN ×2 (08:38→17:51)
--- NOTE | 2023-09-01 09:26 | Hospitalist Progress Note ---
Date of Service September 01, 2023 Assessment & Plan (1) Pulmonary embolism: Plan Pt is 38yoF with PMHx significant for history PE previously on Coumadin, hx of lupus anticoagulant, MTHFR mutation, rheumatoid arthritis, GERD, gastroparesis, anxiety/mood disorder admitted with new RLE DVT and PE. DVT PE RLE DVT with recurrent PE Past history PE with previous Coumadin use (2005) Probable hypercoagulable state (hx of lupus anticoagulant, MTHFR mutation on pr evious testing), family history of blood clots Patient predisposed by immobility secondary to uncontrolled right hip pain last month, hx R hip surgery (04/2023) Was on Eliquis 2.5mg BID, holding Continue IV heparin Will likely need lifelong anticoagulation. Chronic R hip pain Uncontrolled right hip pain hx labral tear surgery (04/2023) [facility] consult as per patient's mother request Appreciate recs Pain control [facility] consult placed. Gastroparesis On domperidone prescribed by [facility] [place] specialist Notified by pharmacist that service is attempting to get prescriber/pharmacy info for her home med to be given, as this medication is not legally available in the [place] unless provider has obtained approval from the FDA to prescribe or has an approved IND. Per admitting provider: "continue patient home domperidone once copy of IND approval obtained from patient's GI specialist office (Marcela Hewitt PA-C of [facility])." HIM consult was placed for assistance. Medication currently on hold- per pharmacy only needs to be tapered off on higher doses used for indication. Anxiety and insomnia are potential withdrawal symptoms. Continue to monitor hx rheumatoid arthritis Continue home MTX GERD Stable Anxiety/mood disorder Inpatient psychiatry consult for worsening depression and anxiety as per patient's mother request Appreciate recs- started on klonipin DVT prophylaxis: currently on heparin drip CODE STATUS: Full code Diet: regular Admission and Anticipated Discharge Date Admission Date: August 31, 2023 Subjective Pt seen in the AM, mother not at bedside. States that the shoulder and back pain have lessened. Some chest tightness. Review of Systems Review of Systems: All systems reviewed & are unremarkable except as noted in Subjective Physical Exam Physical Exam: General: Alert, oriented. No acute distress Skin: No noted rashes or bruises Psych: Appropriate mood and affect Neuro: difficulty moving right hip HEENT: NC/AT Chest: Nontender to palpation. CV: RRR, Normal s1, s2. No murmurs appreciated Resp: Breath sounds clear bilaterally, no increased effort of breathing. Abdomen: Soft, nontender, nondistended. Extremities: No erythema to right inguinal area Results & Data Results & Data Vital Signs (Past 12 Hours) Vital Signs Temp Pulse Pulse Resp BP Pulse Ox O2 Del Method 09/01/23 08:01 36.6 C 72 16 104/66 100 Room Air 09/01/23 07:31 73 08/31/23 23:05 74 08/31/23 22:47 36.4 C L 74 18 107/71 99 Room Air 08/31/23 22:21 Room Air
[2023-09-01 10:12] LABS: Basophils # (auto) 0.04 K/uL (0.00-0.20); Basophils % (auto) 0.8 %; Eosinophils # (auto) 0.13 K/uL (0.00-0.50); Eosinophils % (auto) 2.7 %; Hematocrit (blood only) 39.9 % (37.0-47.0); Hemoglobin 13.3 g/dl (12.0-16.0); Immature Granulocytes # (auto) 0.01 K/uL (0.01-0.20); Immature Granulocytes % (auto) 0.2 %; Lymphocytes # (auto) 1.84 K/uL (1.20-3.40); Lymphocytes % (auto) 37.7 %; Mean Corpuscular Hemoglobin 31.9 pg (25.0-34.0); Mean Corpuscular Hgb Conc 33.3 g/dL (32.0-36.0); Mean Corpuscular Volume 95.7 fL (80.0-100.0); Mean Platelet Volume 10.3 fL (9.4-12.4); Monocytes # (auto) 0.57 K/uL (0.11-0.59); Monocytes % (auto) 11.7 %; Neutrophils # (auto) 2.29 K/uL (1.40-6.50); Neutrophils % (auto) 46.9 %; Platelet Count 230 K/uL (130-400); RDW Standard Deviation 48.6 fL (36.4-46.3); Red Blood Count 4.17 M/uL (4.20-5.40); White Blood Count 4.88 K/ul (4.8-10.8)
[2023-09-01 10:33] LABS: Albumin Globulin Ratio 1.9 (0.9-2); Albumin Level 3.7 gm/dl (3.4-5.0); BUN Creatinine Ratio 8.5 (10-20); Bilirubin,Total 0.7 mg/dl (0.2-1.0); Calcium 8.3 mg/dl (8.6-10.3); Creatinine Clr Calc Pharmacy 84.7 ml/min; Est GFR (African American) 88.6 ml/min; Est GFR (Non-African American) 76.4 ml/min; Globulin 1.9 gm/dl (2.5-4.0); Potassium 4.3 mmol/L (3.5-5.1); Total Protein 5.6 gm/dl (6.0-8.3)
[2023-09-01] MEDS: PROMETHAZINE HCL 12.5 MG in SODIUM CHLORIDE 0.9% 50 ML IV PRN (11:36)
[2023-09-01] MEDS: MoRPHine SULFATE 4 MG/ML 1 ML CARP\\VIAL IV PRN ×2 (11:56→21:40)
--- NOTE | 2023-09-01 12:21 | Electrocardiogram Report ---
Test Reason : Blood Pressure : / mmHG Vent. Rate : 068 BPM Atrial Rate : 068 BPM P-R Int : 144 ms QRS Dur : 082 ms QT Int : 412 ms P-R-T Axes : 059 013 025 degrees QTc Int : 438 ms Normal sinus rhythm Low voltage QRS Cannot rule out Anterior infarct , age undetermined Abnormal ECG No previous ECGs available Confirmed by Fly Rogers ([id number]) on 09/01/2023 12:20:55 PM Referred By: REFERRED SELF Confirmed By:Fly Rogers
[2023-09-01] MEDS ORDERED: INFLUENZA VIRUS QUADRIVALENT VACCINE (IIV4) 0.5 ML SYR IM ONE (14:00)
--- NOTE | 2023-09-01 15:58 | Orthopedic Consultation ---
Date of Consultation September 01, 2023 Assessment & Plan (1) Right hip pain: x-rays have been reviewed by myself. I have also discussed this with Dr. Tariq discussing the x-ray results as well as CT scan. Patient also has a noted MRI scan report from 08/18/2023 noting dural labral separation anterior superior labrum. Patient has noted history of having to right hip arthroscopies with labral repair. She states that she has up to 7 anchors in the right hip secondary to these repairs. She has been relegated to toe-touch weightbearing and is having increasing difficulty going about her daily activities secondary to severe right hip pain. She is at the point where she is now residing at her mother's home where her mother can help take care of her. She has subsequently developed a right pulmonary embolus as well as right lower extremity DVT. I will discuss this case further with Dr. Tariq. Patient is adamant that she has a repeat MRI at some point with possible use of contrast. I discussed that this might be possible however wanted to further discuss it with [facility]. She also has a noticeable weakness of the right lower extremity and although lacking low back pain of which she has had in the past, the question may be to check an MRI of the lumbar spine but this also will be discussed with [facility]. Continue current pain regimen with oxycodone and morphine. With no fractures or dislocations identified, patient can certainly be up to a chair if she is capable. She will likely remain toe-touch weightbearing secondary to the severity of her pain. As noted above this will be discussed with [facility] and decision for further imaging. History of Present Illness Reason for Consultation: Right hip pain. Attending Physician: Marah Mueller MD History of Present Illness Patient is a 38-year-old female who was admitted to the hospital last night for pulmonary embolus as well as her right DVT. PMH consists of Medical history significant for history PE status post Coumadin, hx of lupus anticoagulant, MTHFR mutation, rheumatoid arthritis, GERD, gastroparesis, anxiety/mood disorder, past tobacco abuse. At the time of her admission she was also having moderate to severe right hip pain which has been ongoing. Patient states that she has been with the [facility] down in [place] taking care of her orthopedic ailments. She sees rheumatology down in the [place] area and states that although she has not truly tested positive for rheumatoid arthritis, that she inhibits many of the symptoms to go with it and they are certain that she does have rheumatoid arthritis in some fashion. She states that also her fibromyalgia was diagnosed shortly after her rheumatoid arthritis diagnosis. Patient has a history of labral tear of her left and right hips in the past. She states that the left was repaired sometime ago. She had a recent repair of her right labral tear in April 25 This was her second hip arthroscopy on that side. She states that she was doing well after the arthroscopy which repaired her labral tear. They were having her go at a much slower pace this time with her recuperation and physical therapy. The patient states that she was having minimal to no pain in that hip, However on August 13, she had sudden hip pain in the right groin that made her fall to her knees. She feels her leg weakness began at that time as well. She denied low back pain at that time. She states that the pain was so severe that she laid down on the floor and crawled to the kitchen to be able to call for help. She states she then had an MRI of her right hip on 18 August which showed no acute traumatic or stress related fractures. Chondral/labral separation of the anterior superior labrum. Since the time of her fall and the MRI, the patient has had severe pain in her right hip. She states that it does not radiate down her leg into her foot although she has noted increased weakness in her right lower extremity. She has gotten to the point where she needs regular care which her has not been able to provide and has moved up to her mother's home so that her mother can help take care of her. She states that she has spoken to her orthopedist down in [place] but that they have no guidance on moving forward with her current problem. At the time of her severe pain starting, she was not overexerting herself. She was ambulating through one of her rooms. She was planning on having a second opinion done at some point while she was here however recent symptoms from her pulmonary embolus etc. brought her to the emergency room. We have been asked to see her for her right hip pain Allergies Allergy/AdvReac Type Severity Reaction Status Date / Time amoxicillin Allergy Severe Hives Verified 08/31/23 19:51 ciprofloxacin Allergy Severe Hives Verified 08/31/23 19:51 clarithromycin [From Biaxin] Allergy Severe Hives Verified 08/31/23 19:51 dexamethasone [From Maxitrol] Allergy Severe itching Verified 08/31/23 19:51 herbal drugs [From Ricola] Allergy Severe Anaphylaxis Verified 08/31/23 19:51 infliximab [From Remicade] Allergy Severe DILE Verified 08/31/23 19:51 menthol [From Ricola] Allergy Severe Anaphylaxis Verified 08/31/23 19:51 neomycin [From Maxitrol] Allergy Severe itching Verified 08/31/23 19:51 Penicillins Allergy Severe Hives Verified 08/31/23 19:51 polymyxin B [From Maxitrol] Allergy Severe itching Verified 08/31/23 19:51 celecoxib [From Celebrex] AdvReac Severe Abdominal Verified 08/31/23 19:51 Pain moxifloxacin [From Vigamox] AdvReac Severe itching Verified 08/31/23 19:51 sulfamethoxazole AdvReac Severe Abdominal Verified 08/31/23 19:51 [From Bactrim] Pain trimethoprim [From Bactrim] AdvReac Severe Abdominal Verified 08/31/23 19:51 Pain doxycycline AdvReac Intermediate Diarrhea Verified 08/31/23 19:51 adalimumab [From Humira] AdvReac does not Verified 08/31/23 19:51 work etanercept [From Enbrel] AdvReac amplifies Verified 08/31/23 19:51 migraines Home Medications Medication Instructions Recorded Confirmed Type Bacillus coagulans 2 billion 1 cap PO DAILY 08/31/23 08/31/23 History cell-calcium 140 mg capsule (Digestive Advantage Probiotic) Domperidone 10 mg PO TIDWMEAL 08/31/23 08/31/23 History Medical Marijuana See Rx Instructions .Route .COMPLEX 08/31/23 08/31/23 History albuterol sulfate 90 mcg/actuation 2 puff inhalation BID PRN breathing 08/31/23 08/31/23 History aerosol inhaler apixaban 2.5 mg tablet (Eliquis) 2.5 mg PO BID 08/31/23 08/31/23 History baclofen 20 mg tablet 20 mg PO HS PRN Muscle Spasm 08/31/23 08/31/23 History banhrpo-yyx-qbt Y7-P5-chcmoyck 250 1 tab PO DAILY 08/31/23 08/31/23 History mg-40 mg-5 mg-125 unit tablet cholecalciferol (vitamin D3) 50 50 mcg PO QAM 08/31/23 08/31/23 History mcg (2,000 unit) tablet (Vitamin D3) cyclobenzaprine 5 mg tablet 5 - 10 mg PO BID PRN pain/spasm 08/31/23 08/31/23 History dexlansoprazole 60 mg 60 mg PO QAM 08/31/23 08/31/23 History capsule,biphase delayed release diazepam 5 mg tablet 5 mg PO Q6 PRN Anxiety 08/31/23 08/31/23 History diphenhydramine HCl 25 mg tablet 25 - 50 mg PO HS PRN Allergy 08/31/23 08/31/23 History (Benadryl Allergy) Symptoms duloxetine 30 mg capsule,delayed 90 mg PO DAILY 08/31/23 08/31/23 History release eletriptan 40 mg tablet (Relpax) 40 mg PO UD 08/31/23 08/31/23 History epinephrine 0.3 mg/0.3 mL 0.3 mg IM UD PRN Allergic 08/31/23 08/31/23 History injection, auto-injector Reaction,severe folic acid 1 mg tablet 1 mg PO [id number] 08/31/23 08/31/23 History galcanezumab-gnlm 120 mg/mL 120 mg subcut MONTHLY 08/31/23 08/31/23 History subcutaneous pen injector (Emgality Pen) hydrocodone 5 mg-acetaminophen 325 1 tab PO .EVERY 4-6 HOURS PRN Pain 08/31/23 08/31/23 History mg tablet hydroxychloroquine 200 mg tablet 200 mg PO BID 08/31/23 08/31/23 History levocetirizine 5 mg tablet (Xyzal) 5 mg PO .ON HOLD AT PRESENT 08/31/23 08/31/23 History magnesium oxide 400 mg PO DAILY 08/31/23 08/31/23 History methotrexate sodium 2.5 mg tablet 20 mg PO WK 08/31/23 08/31/23 History methylprednisolone 0 mg PO UD y 08/31/23 08/31/23 History multivit,Ca,knk-yigh-OE-guarana-caff 1 tab PO DAILY 08/31/23 08/31/23 History 18 mg iron-400 mcg-180 mg tablet potassium chloride 20 mEq 20 meq PO QAM 08/31/23 08/31/23 History tablet,extended release(part/cryst) (Klor-Con M) prednisone 10 mg tablet 0 mg PO UD PRN RA flares 08/31/23 08/31/23 History promethazine 12.5 mg tablet 6.25 mg PO Q6 PRN Nausea/vomiting 08/31/23 08/31/23 History topiramate 25 mg tablet 25 mg PO AMHS 08/31/23 08/31/23 History topiramate 50 mg tablet 50 mg PO AMHS 08/31/23 08/31/23 History Patient History Medical History (Updated 09/01/23 @ 16:38 by Devora Clinton MD) DVT (deep venous thrombosis) Pulmonary embolism Right hip pain Social History Smoking Status: Former smoker Second Hand Exposure: No; Do You Dip or Chew Tobacco: No; Tobacco Cessation Education Requested by Patient: No Hx Alcohol Use: Yes Hx Substance Use: Yes Last Used Substance: Days (ago) Last Used Substance Other:: 19 Preferred Language: Indonesian Communication Ability: Effective Resource Specialist Required: No Beliefs That Will Affect Care: None Current Living Situation: Spouse Other Information That Helps Us Care for You: No Feels Safe at Home: Yes Safety Concerns: Feels Safe At This Time Assistive Devices: Crutches Physical Exam Physical Exam: On examination, the patient is a 38-year-old obese white female who appears her stated age. She is alert and oriented x3. Currently she is in no acute distress. Pleasant and cooperative. On examination of her right lower extremity, there is no overt leg length discrepancy compared to the left. She denies any decrease sensation down the right lower extremity compared to the left. She is able to dorsiflex the right foot however noticeable weakness is noted in dorsiflexion and plantarflexion of the right foot at this time compared to the left. She is able to dorsiflex the great toe. She has no pain on palpation of the right knee and I am able to take her through gentle range of motion of the right knee without difficulty. Examining the left hip, she appears to have a slight amount of increased swelling of the right thigh and hip compared to the left. There are well-healed scars from her previous hip arthroscopies noted. She is tender on palpation over the right greater trochanter. As I move anteriorly, she continues to have the same pain. She states that the pain is deeper in her groin. Moving posteriorly, she continues to have the same pain and stops just shy of the right SI joint. She has no overt pain in the SI joints at this time. I am able to take her through gentle range of motion of the the hip With internal and external rotation without pain. She has no pain with adduction. I can only get her to about 10 degrees of abduction before she has pain in the groin area. I am then able to take her through passive flexion of the hip to approximately 60 degrees before she starts having pain in the groin. Bringing her down through extension does not increase the pain and states she has less pain with extension. She is unable to do a straight leg raise on her own. This is certainly weaker compared to the left side. Of note, the patient is able to turn onto her left side under her own power. She was discussing some increased swelling around her lower back which was somewhat noticeable. Palpation of the lumbar spine did not elicit any pain. SI joints were palpated and she had some mild discomfort on the right compared to the left. Patient was then able to roll over onto her back on her own power and she did have a little bit better muscle control of the right leg with extension at that time. She states that it was fairly painful to roll onto her side and back. She noted that during her ultrasound of her lower extremity that abduction and external rotation brought her to tears. she also notes that she had some increased pain above her right groin and was noted that on palpation of her ASIS as well as her iliac crest showed a noted painful response. Palpation of this area on the left side of the pelvis elicited only minimal discomfort at the ASIS. Again sensation remains intact. Pulses appear equal. she does have a mild to moderate weakness of the right lower extremity compared to the left as noted but no gross motor or sensory loss seen at this time. She has no problem moving the left lower extremity and can take the hip, knee, and ankle through active range of motion without discomfort. Results & Data Vital Signs (Past 12 Hours) Vital Signs Temp Pulse Pulse Resp BP Pulse Ox O2 Del Method 09/01/23 15:32 74 09/01/23 11:40 36.6 C 74 16 105/68 98 Room Air 09/01/23 08:01 36.6 C 72 16 104/66 100 Room Air 09/01/23 07:31 73 Laboratory Results Laboratory Results WBC 4.88 K/ul (4.8-10.8) 09/01/23 06:59 RBC 4.17 M/uL (4.20-5.40) L 09/01/23 06:59 Hgb 13.3 g/dl (12.0-16.0) 09/01/23 06:59 POC Hgb 13.6 g/dl (12.0-16.0) 08/31/23 16:55 Hct 39.9 % (37.0-47.0) 09/01/23 06:59 POC Hct 40 % (37-47) 08/31/23 16:55 MCV 95.7 fL (80.0-100.0) 09/01/23 06:59 MCH 31.9 pg (25.0-34.0) 09/01/23 06:59 MCHC 33.3 g/dL (32.0-36.0) 09/01/23 06:59 RDW Std Deviation 48.6 fL (36.4-46.3) H 09/01/23 06:59 RDW Coeff of Jose 14.0 % (11.5-14.5) 09/01/23 06:59 Plt Count 230 K/uL (130-400) 09/01/23 06:59 MPV 10.3 fL (9.4-12.4) 09/01/23 06:59 Immature Gran % (Auto) 0.2 % 09/01/23 06:59 Neut % (Auto) 46.9 % 09/01/23 06:59 Lymph % (Auto) 37.7 % 09/01/23 06:59 [place] % (Auto) 11.7 % 09/01/23 06:59 Eos % (Auto) 2.7 % 09/01/23 06:59 Baso % (Auto) 0.8 % 09/01/23 06:59 Neut # (Auto) 2.29 K/uL (1.40-6.50) 09/01/23 06:59 Lymph # (Auto) 1.84 K/uL (1.20-3.40) 09/01/23 06:59 [place] # (Auto) 0.57 K/uL (0.11-0.59) 09/01/23 06:59 Eos # (Auto) 0.13 K/uL (0.00-0.50) 09/01/23 06:59 Baso # (Auto) 0.04 K/uL (0.00-0.20) 09/01/23 06:59 Immature Gran # (Auto) 0.01 K/uL (0.01-0.20) 09/01/23 06:59 PT 11.1 Seconds (9.0-12.0) 08/31/23 16:25 INR 1.0 (0.9-1.1) 08/31/23 16:25 APTT 64.3 Seconds (21.0-31.0) H* 09/01/23 06:55 PTT Ratio 2.3 09/01/23 06:55 POC Sodium 140 mmol/L (135-144) 08/31/23 16:55 Sodium 141 mmol/L (136-145) 09/01/23 06:59 POC Potassium 4.7 mmol/L (3.3-5.0) 08/31/23 16:55 Potassium 4.3 mmol/L (3.5-5.1) D 09/01/23 06:59 POC Chloride 108 mmol/L (101-112) 08/31/23 16:55 Chloride 113 mmol/L (98-107) H 09/01/23 06:59 Carbon Dioxide 27 mmol/L (21-32) 09/01/23 06:59 POC Total CO2 23 mmol/L (24-31) L 08/31/23 16:55 Anion Gap 1 (3-11) L 09/01/23 06:59 POC Anion Gap 16.0 mmol/L (16-25) 08/31/23 16:55 POC BUN 11 mg/dl (7-18) 08/31/23 16:55 BUN 8 mg/dl (6-23) 09/01/23 06:59 Creatinine 0.94 mg/dl (0.6-1.2) 09/01/23 06:59 POC Creatinine 1.1 mg/dl (0.6-1.3) 08/31/23 16:55 Est Cr Clr Drug Dosing 84.7 ml/min 09/01/23 06:59 Est GFR ( Amer) 88.6 ml/min 09/01/23 06:59 Est GFR (Non-Af Amer) 76.4 ml/min 09/01/23 06:59 BUN/Creatinine Ratio 8.5 (10-20) L 09/01/23 06:59 Glucose 84 mg/dl (70-99(Fasting)) 09/01/23 06:59 POC Glucose (other) 92 mg/dl (70-99) 08/31/23 16:55 Calcium 8.3 mg/dl (8.6-10.3) L 09/01/23 06:59 POC Ioniz Calcium Idris 1.17 mmol/l (1.12-1.32) 08/31/23 16:55 Magnesium 1.8 mg/dl (1.7-2.4) 08/31/23 16:25 Total Bilirubin 0.7 mg/dl (0.2-1.0) 09/01/23 06:59 AST 355 U/L (13-39) H 09/01/23 06:59 ALT 259 U/L (7-52) H 09/01/23 06:59 Alkaline Phosphatase 99 U/L (34-104) 09/01/23 06:59 Troponin I High Sens 2.6 pg/ml (0-14) 08/31/23 16:25 Total Protein 5.6 gm/dl (6.0-8.3) L 09/01/23 06:59 Albumin 3.7 gm/dl (3.4-5.0) 09/01/23 06:59 Globulin 1.9 gm/dl (2.5-4.0) L 09/01/23 06:59 Albumin/Globulin Ratio 1.9 (0.9-2) 09/01/23 06:59 Lipase 38 U/L (11-82) 08/31/23 16:25 Urine Color Yellow 08/31/23 18:47 Urine Appearance Clear (Clear) 08/31/23 18:47 Urine pH 7.5 (4.5-7.5) 08/31/23 18:47 Ur Specific [place] 1.017 (1.000-1.030) 08/31/23 18:47 Urine Protein Negative (Negative) 08/31/23 18:47 Urine Glucose (UA) Negative (Negative) 08/31/23 18:47 Urine Ketones Negative (Negative) 08/31/23 18:47 Urine Blood Negative (Negative) 08/31/23 18:47 Urine Nitrite Negative (Negative) 08/31/23 18:47 Urine Bilirubin Negative (Negative) 08/31/23 18:47 Urine Urobilinogen Negative (Negative) 08/31/23 18:47 Ur Leukocyte Esterase Negative (Negative) 08/31/23 18:47 POC Ur Test NEG (NEG) 08/31/23 18:47 Impressions Chest CTA 08/31/23 16:29 CT ANGIOGRAM OF THE CHEST CLINICAL HISTORY: Cough. Atypical chest pain. COMPARISON STUDY: No priors. TECHNIQUE: Following the IV administration of 116 cc of Optiray 320, CT angiogram of the chest was performed from the upper abdomen to the thoracic inlet utilizing the pulmonary embolus protocol. Images are reviewed in the axial, sagittal, and coronal planes. 3-D MIPS images are created and assessed. IV contrast was administered without complication. A dose lowering technique was utilized adhering to the principles of ALARA. CT DOSE: 887.35 mGy.cm FINDINGS: Thyroid: Imaged portions of the thyroid gland are normal in size and attenuation. Thoracic aorta: The thoracic aorta is normal in caliber and demonstrates 4- vessel variant arch anatomy. No dissection is seen. Pulmonary vasculature: The pulmonary trunk is normal in caliber. There is a linear filling defect identified within a segmental branch of the right upper lobe pulmonary artery on image #131. This is consistent with age indeterminant pulmonary embolus. No additional filling defects are identified in the main, lobar, or segmental pulmonary branches to indicate pulmonary emboli. Evaluation of the segmental and subsegmental branches in the lower lobes are significantly degraded by motion artifact. Heart: The heart is normal in size and without pericardial effusion. Lungs and pleural spaces: Evaluation of the lung parenchyma is degraded by motion artifact. No airspace consolidation or pleural effusion is seen. The trachea and central airways are clear. Mediastinum: There is no mediastinal lymphadenopathy. [place]: Clear. Axillae: There is no axillary lymphadenopathy. Upper abdomen: Cholecystectomy clips are noted. Partially visualized upper abdominal viscera is otherwise within normal limits. Skeletal structures: No lytic or blastic bony lesions are seen. There is hyperkyphosis of the thoracic spine. IMPRESSION: 1. There is age indeterminant pulmonary embolus within a segmental branch of the right upper lobe pulmonary artery. 2. No additional filling defects are identified in the main, lobar, or segmental pulmonary vessels to indicate pulmonary embolus. Note that evaluation of the segmental and subsegmental branches of the lower lobe pulmonary arteries is significantly degraded by motion artifact. 3. No airspace consolidation or pleural effusion is identified. 4. Additional findings as above. ACT 112: Negative or not required by law. Electronically signed by: Usama Harrison M.D. 08/31/2023 6:01 PM Venous Doppler Study 08/31/23 16:29 ULTRASOUND RIGHT LOWER EXTREMITY VENOUS CLINICAL HISTORY: Right leg pain. History of recent hip surgery. Swelling. COMPARISON STUDY: No priors. TECHNIQUE: Real-time, grayscale, and color Doppler sonography of the deep veins of the right lower extremity was performed from the inguinal crease to the calf. Compression and augmentation were utilized. FINDINGS: There is occlusive deep venous thrombosis identified in the right calf within one of the posterior tibial veins and one of the peroneal veins. The remaining calf vessels appear clear. The common femoral, superficial femoral, and popliteal veins are patent and normally compressible. The greater saphenous vein and the profunda femoris vein at the junction with the common femoral vein are clear. IMPRESSION: Occlusive deep venous thrombosis in the right calf as above. ACT 112: Negative or not required by law. Electronically signed by: Usama Harrison M.D. 08/31/2023 6:32 PM Hip/Pelvis X-Ray 08/31/23 16:49 SINGLE VIEW PELVIS; 2 VIEWS RIGHT HIP CLINICAL HISTORY: Right hip pain. FINDINGS: An AP view of the pelvis with AP and frog-leg views of the right hip are obtained. No prior studies are available for comparison at the time of dictation. The skeletal structures well mineralized. There is no radiographic evidence of acute fracture involving the hips or bony pelvis. The joint spaces of the hips are maintained. There is degenerative sclerosis of the sacroiliac joints. The overlying soft tissues are within normal limits. An intrauterine device projects over the pelvis. Suture material projects over the right midabdomen. IMPRESSION: No acute bony abnormality is identified. Electronically signed by: Usama Harrison M.D. 08/31/2023 6:[address] 08/31/23 20:59 Exam(s): CT RIGHT HIP Without Contrast EXAM: CT Right Lower Extremity Without Intravenous Contrast, Hip CLINICAL HISTORY: Reason for exam: worsening pain. TECHNIQUE: Axial computed tomography images of the right hip without intravenous contrast. Automated exposure control was utilized for the study. A dose lowering technique was utilized adhering to the principles of ALARA. COMPARISON: No relevant prior studies available. FINDINGS: Bones/joints: Osseous demineralization. No fracture or dislocation. Soft tissues: Unremarkable. No soft tissue hematoma. Reproductive: IUD in the uterus. Other findings: The need for MRI should be determined clinically. IMPRESSION: 1. No fracture or dislocation. 2. The need for MRI should be determined clinically. Electronically signed by: Kale Stanton MD 08/31/23 23:38 PM
--- NOTE | 2023-09-01 16:31 | Psychiatric Consultation ---
Date of Consultation September 01, 2023 Impression / Recommendations Impression 38 yo female with depressive disorder due in part to severe psychosocial stressors and autoimmune/inflammatory disease, some family hx, symptoms currently worsening in the setting of recent steroids and acute PE. Has been tolerating increase in Cymbalta. Valium is minimally helpful and not assisting her anxiety as much as she would like despite the dose. (1) Major depression: Plan extensive discussion with patient and at bedside (with her permission/preference) re: t 1/2 of various benzodiazepines, rx in combination with opiates/risks/benefits Ativan vs. Klonopin vs. 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 Would suggest switch to Klonopin, equivalent dose is not exact but somewhere between 2-3 mg Klonopin daily since 20 mg Valium plus prn Ativan. Will aim on lower side given receiving IV Morphine and follow. outpatient psychiatry referral for aftercare planning Cymbalta dosing could be increased to 120 mg in consultation with hospitalist but will defer for today. Dr. Briones updated. Overall, I spent a total of 60 minutes with this case, including review of chart/records, direct evaluation of the patient, counseling the patient and , ordering medication, coordination with nurse and hospitalist, and documentation. Psych History Identifying Data 38 yo female from [facility] residing locally with her parents for support, admit medically 08/31 for PE, hypercoaguable state with intermittent steroids for RA with significant hip involvement. Chief Complaint "I'm not going to hurt myself but I just want to sleep and for this all to be done." History of Present Illness As per liaison: Rounded on patient for initial assessment regarding consult. Patient pleasant and cooperative during interview. Affect flat, c/o nausea. She reports that she is from the [facility] and has been staying with her mother and step father who are local while her is working. She states that she has been having hip pain with two torn labrum repairs along with RA, and now diagnosis of PE and DVT. This has contributed to her mental health decline and is concerned about what she might do. She states "I wouldn't do anything intentional." "My family is concerned and have been very open about my concerns." She reports that her mother is controlling her medications and administering as prescribed. She denies any past SA, or any past suicidal thoughts prior to her recent health issues. She does have a therapist in [place] whom she finds is beneficial. She was seen in the ED at [facility] on 08/14 for a MH evaluation and was discharged. She states "I just want the suffering to stop." When asked about her thoughts on inpatient mental health treatment she states "I'm not sure, I just want to feel better." She denies any access to weapons. She does reports having a large support system. It was explained to her that Dr. Clinton would be rounding on her and recommendations would be discussed. Patient was grateful for the visit and was encouraged to reach out with any questions/concerns. Patient reports hopelessness despite increase in Cymbalta which is partially to address fibromyalgia pain. She has a history of primarily irritability to steroids. Feels depression driven by medical, "I thing after the next" and "had a meltdown" at outpatient ortho appointment within past 2 weeks where she was started on Valium 5 mg prn but she has been routinely taking it q6. Patient was somewhat "campbell mitali" from her morphine and started to nod off/had difficulty recalling past medication trials. She seems to want to "numb out" but has no hx of substance misuse. She does have a family hx of a cousin completing suicide. Allergies Allergy/AdvReac Type Severity Reaction Status Date / Time amoxicillin Allergy Severe Hives Verified 08/31/23 19:51 ciprofloxacin Allergy Severe Hives Verified 08/31/23 19:51 clarithromycin [From Biaxin] Allergy Severe Hives Verified 08/31/23 19:51 dexamethasone [From Maxitrol] Allergy Severe itching Verified 08/31/23 19:51 herbal drugs [From Ricola] Allergy Severe Anaphylaxis Verified 08/31/23 19:51 infliximab [From Remicade] Allergy Severe DILE Verified 08/31/23 19:51 menthol [From Ricola] Allergy Severe Anaphylaxis Verified 08/31/23 19:51 neomycin [From Maxitrol] Allergy Severe itching Verified 08/31/23 19:51 Penicillins Allergy Severe Hives Verified 08/31/23 19:51 polymyxin B [From Maxitrol] Allergy Severe itching Verified 08/31/23 19:51 celecoxib [From Celebrex] AdvReac Severe Abdominal Verified 08/31/23 19:51 Pain moxifloxacin [From Vigamox] AdvReac Severe itching Verified 08/31/23 19:51 sulfamethoxazole AdvReac Severe Abdominal Verified 08/31/23 19:51 [From Bactrim] Pain trimethoprim [From Bactrim] AdvReac Severe Abdominal Verified 08/31/23 19:51 Pain doxycycline AdvReac Intermediate Diarrhea Verified 08/31/23 19:51 adalimumab [From Humira] AdvReac does not Verified 08/31/23 19:51 work etanercept [From Enbrel] AdvReac amplifies Verified 08/31/23 19:51 migraines Home Medications Medication Instructions Recorded Confirmed Type Bacillus coagulans 2 billion 1 cap PO DAILY 08/31/23 08/31/23 History cell-calcium 140 mg capsule (Digestive Advantage Probiotic) Domperidone 10 mg PO TIDWMEAL 08/31/23 08/31/23 History Medical Marijuana See Rx Instructions .Route .COMPLEX 08/31/23 08/31/23 History albuterol sulfate 90 mcg/actuation 2 puff inhalation BID PRN breathing 08/31/23 08/31/23 History aerosol inhaler apixaban 2.5 mg tablet (Eliquis) 2.5 mg PO BID 08/31/23 08/31/23 History baclofen 20 mg tablet 20 mg PO HS PRN Muscle Spasm 08/31/23 08/31/23 History relwamf-bia-pjq R6-L4-nqkydhwn 250 1 tab PO DAILY 08/31/23 08/31/23 History mg-40 mg-5 mg-125 unit tablet cholecalciferol (vitamin D3) 50 50 mcg PO QAM 08/31/23 08/31/23 History mcg (2,000 unit) tablet (Vitamin D3) cyclobenzaprine 5 mg tablet 5 - 10 mg PO BID PRN pain/spasm 08/31/23 08/31/23 History dexlansoprazole 60 mg 60 mg PO QAM 08/31/23 08/31/23 History capsule,biphase delayed release diazepam 5 mg tablet 5 mg PO Q6 PRN Anxiety 08/31/23 08/31/23 History diphenhydramine HCl 25 mg tablet 25 - 50 mg PO HS PRN Allergy 08/31/23 08/31/23 History (Benadryl Allergy) Symptoms duloxetine 30 mg capsule,delayed 90 mg PO DAILY 08/31/23 08/31/23 History release eletriptan 40 mg tablet (Relpax) 40 mg PO UD 08/31/23 08/31/23 History epinephrine 0.3 mg/0.3 mL 0.3 mg IM UD PRN Allergic 08/31/23 08/31/23 History injection, auto-injector Reaction,severe folic acid 1 mg tablet 1 mg PO [id number] 08/31/23 08/31/23 History galcanezumab-gnlm 120 mg/mL 120 mg subcut MONTHLY 08/31/23 08/31/23 History subcutaneous pen injector (Emgality Pen) hydrocodone 5 mg-acetaminophen 325 1 tab PO .EVERY 4-6 HOURS PRN Pain 08/31/23 08/31/23 History mg tablet hydroxychloroquine 200 mg tablet 200 mg PO BID 08/31/23 08/31/23 History levocetirizine 5 mg tablet (Xyzal) 5 mg PO .ON HOLD AT PRESENT 08/31/23 08/31/23 History magnesium oxide 400 mg PO DAILY 08/31/23 08/31/23 History methotrexate sodium 2.5 mg tablet 20 mg PO WK 08/31/23 08/31/23 History methylprednisolone 0 mg PO UD y 08/31/23 08/31/23 History multivit,Ca,bjd-bmvl-GG-guarana-caff 1 tab PO DAILY 08/31/23 08/31/23 History 18 mg iron-400 mcg-180 mg tablet potassium chloride 20 mEq 20 meq PO QAM 08/31/23 08/31/23 History tablet,extended release(part/cryst) (Klor-Con M) prednisone 10 mg tablet 0 mg PO UD PRN RA flares 08/31/23 08/31/23 History promethazine 12.5 mg tablet 6.25 mg PO Q6 PRN Nausea/vomiting 08/31/23 08/31/23 History topiramate 25 mg tablet 25 mg PO AMHS 08/31/23 08/31/23 History topiramate 50 mg tablet 50 mg PO AMHS 08/31/23 08/31/23 History Patient History Medical History (Updated 09/01/23 @ 16:38 by Devora Clinton MD) DVT (deep venous thrombosis) Pulmonary embolism Right hip pain Social History Smoking Status: Former smoker Second Hand Exposure: No; Do You Dip or Chew Tobacco: No; Tobacco Cessation Education Requested by Patient: No Hx Alcohol Use: Yes Hx Substance Use: Yes Last Used Substance: Days (ago) Last Used Substance Other:: 19 Preferred Language: Swazi Communication Ability: Effective Home Housekeeper Required: No Beliefs That Will Affect Care: None Current Living Situation: Spouse Other Information That Helps Us Care for You: No Feels Safe at Home: Yes Safety Concerns: Feels Safe At This Time Assistive Devices: Crutches Physical Exam Psychiatric: Orientation: alert and oriented x 3 Apperance: appropriately dressed and appropriately groomed Eye Contact: good eye contact Motor Behavior: no abnormal motor movements Speech: normal rate/rhythm/volume of speech Affect: + depressed affect Mood: + depressed mood Thought Process: goal directed thought process Thought Content: reality based without delusions Suicidal Thoughts: denies suicidal thoughts Homicidal Thoughts: denies homicidal thoughts Hallucinations: no auditory hallucinations and no visual hallucinations Cognition: attention grossly intact and language grossly intact Estimated Intelligence: consistent with education level Vital Signs (Past 24 Hours): Last Vital Signs Temp 36.6 C 09/01/23 11:40 Pulse 74 09/01/23 15:32 Resp 16 09/01/23 11:40 BP 105/68 09/01/23 11:40 Pulse Ox 98 09/01/23 11:40 O2 Del Method Room Air 09/01/23 11:40 Review of Systems All systems reviewed & are unremarkable except as noted in HPI & below Results & Data (PSY) Laboratory Results 09/01/23 09/01/23 09/01/23 Range/Units 06:59 06:59 06:55 WBC 4.88 (4.8-10.8) K/ul RBC 4.17 L (4.20-5.40) M/uL Hgb 13.3 (12.0-16.0) g/dl POC Hgb (12.0-16.0) g/dl Hct 39.9 (37.0-47.0) % POC Hct (37-47) % MCV 95.7 (80.0-100.0) fL MCH 31.9 (25.0-34.0) pg MCHC 33.3 (32.0-36.0) g/dL RDW Std Deviation 48.6 H (36.4-46.3) fL RDW Coeff of Jose 14.0 (11.5-14.5) % Plt Count 230 (130-400) K/uL MPV 10.3 (9.4-12.4) fL Immature Gran % (Auto) 0.2 % Neut % (Auto) 46.9 % Lymph % (Auto) 37.7 % Moffat % (Auto) 11.7 % Eos % (Auto) 2.7 % Baso % (Auto) 0.8 % Neut # (Auto) 2.29 (1.40-6.50) K/uL Lymph # (Auto) 1.84 (1.20-3.40) K/uL Moffat # (Auto) 0.57 (0.11-0.59) K/uL Eos # (Auto) 0.13 (0.00-0.50) K/uL Baso # (Auto) 0.04 (0.00-0.20) K/uL Immature Gran # (Auto) 0.01 (0.01-0.20) K/uL PT (9.0-12.0) Seconds INR (0.9-1.1) APTT 64.3 H* (21.0-31.0) Seconds PTT Ratio 2.3 POC Sodium (135-144) mmol/L Sodium 141 (136-145) mmol/L POC Potassium (3.3-5.0) mmol/L Potassium 4.3 D (3.5-5.1) mmol/L POC Chloride (101-112) mmol/L Chloride 113 H (98-107) mmol/L Carbon Dioxide 27 (21-32) mmol/L POC Total CO2 (24-31) mmol/L Anion Gap 1 L (3-11) POC Anion Gap (16-25) mmol/L POC BUN (7-18) mg/dl BUN 8 (6-23) mg/dl Creatinine 0.94 (0.6-1.2) mg/dl POC Creatinine (0.6-1.3) mg/dl Est Cr Clr Drug Dosing 84.7 ml/min Est GFR ( Amer) 88.6 ml/min Est GFR (Non-Af Amer) 76.4 ml/min BUN/Creatinine Ratio 8.5 L (10-20) Glucose 84 (70-99(Fasting)) mg/dl POC Glucose (other) (70-99) mg/dl Calcium 8.3 L (8.6-10.3) mg/dl POC Ioniz Calcium Idris (1.12-1.32) mmol/l Magnesium (1.7-2.4) mg/dl Total Bilirubin 0.7 (0.2-1.0) mg/dl AST 355 H (13-39) U/L ALT 259 H (7-52) U/L Alkaline Phosphatase 99 (34-104) U/L Troponin I High Sens (0-14) pg/ml Total Protein 5.6 L (6.0-8.3) gm/dl Albumin 3.7 (3.4-5.0) gm/dl Globulin 1.9 L (2.5-4.0) gm/dl Albumin/Globulin Ratio 1.9 (0.9-2) Lipase (11-82) U/L Urine Color Urine Appearance (Clear) Urine pH (4.5-7.5) Ur Specific [place] (1.000-1.030) Urine Protein (Negative) Urine Glucose (UA) (Negative) Urine Ketones (Negative) Urine Blood (Negative) Urine Nitrite (Negative) Urine Bilirubin (Negative) Urine Urobilinogen (Negative) Ur Leukocyte Esterase (Negative) POC Ur Test (NEG) 08/31/23 08/31/23 08/31/23 Range/Units 18:47 18:47 16:55 WBC (4.8-10.8) K/ul RBC (4.20-5.40) M/uL Hgb (12.0-16.0) g/dl POC Hgb 13.6 (12.0-16.0) g/dl Hct (37.0-47.0) % POC Hct 40 (37-47) % MCV (80.0-100.0) fL MCH (25.0-34.0) pg MCHC (32.0-36.0) g/dL RDW Std Deviation (36.4-46.3) fL RDW Coeff of Jose (11.5-14.5) % Plt Count (130-400) K/uL MPV (9.4-12.4) fL Immature Gran % (Auto) % Neut % (Auto) % Lymph % (Auto) % Moffat % (Auto) % Eos % (Auto) % Baso % (Auto) % Neut # (Auto) (1.40-6.50) K/uL Lymph # (Auto) (1.20-3.40) K/uL Moffat # (Auto) (0.11-0.59) K/uL Eos # (Auto) (0.00-0.50) K/uL Baso # (Auto) (0.00-0.20) K/uL Immature Gran # (Auto) (0.01-0.20) K/uL PT (9.0-12.0) Seconds INR (0.9-1.1) APTT (21.0-31.0) Seconds PTT Ratio POC Sodium 140 (135-144) mmol/L Sodium (136-145) mmol/L POC Potassium 4.7 (3.3-5.0) mmol/L Potassium (3.5-5.1) mmol/L POC Chloride 108 (101-112) mmol/L Chloride (98-107) mmol/L Carbon Dioxide (21-32) mmol/L POC Total CO2 23 L (24-31) mmol/L Anion Gap (3-11) POC Anion Gap 16.0 (16-25) mmol/L POC BUN 11 (7-18) mg/dl BUN (6-23) mg/dl Creatinine (0.6-1.2) mg/dl POC Creatinine 1.1 (0.6-1.3) mg/dl Est Cr Clr Drug Dosing ml/min Est GFR ( Amer) ml/min Est GFR (Non-Af Amer) ml/min BUN/Creatinine Ratio (10-20) Glucose (70-99(Fasting)) mg/dl POC Glucose (other) 92 (70-99) mg/dl Calcium (8.6-10.3) mg/dl POC Ioniz Calcium Idris 1.17 (1.12-1.32) mmol/l Magnesium (1.7-2.4) mg/dl Total Bilirubin (0.2-1.0) mg/dl AST (13-39) U/L ALT (7-52) U/L Alkaline Phosphatase (34-104) U/L Troponin I High Sens (0-14) pg/ml Total Protein (6.0-8.3) gm/dl Albumin (3.4-5.0) gm/dl Globulin (2.5-4.0) gm/dl Albumin/Globulin Ratio (0.9-2) Lipase (11-82) U/L Urine Color Yellow Urine Appearance Clear (Clear) Urine pH 7.5 (4.5-7.5) Ur Specific [place] 1.017 (1.000-1.030) Urine Protein Negative (Negative) Urine Glucose (UA) Negative (Negative) Urine Ketones Negative (Negative) Urine Blood Negative (Negative) Urine Nitrite Negative (Negative) Urine Bilirubin Negative (Negative) Urine Urobilinogen Negative (Negative) Ur Leukocyte Esterase Negative (Negative) POC Ur Test NEG (NEG) 08/31/23 08/31/23 08/31/23 Range/Units 16:25 16:25 16:25 WBC 5.91 (4.8-10.8) K/ul RBC 4.36 (4.20-5.40) M/uL Hgb 14.0 (12.0-16.0) g/dl POC Hgb (12.0-16.0) g/dl Hct 41.5 (37.0-47.0) % POC Hct (37-47) % MCV 95.2 (80.0-100.0) fL MCH 32.1 (25.0-34.0) pg MCHC 33.7 (32.0-36.0) g/dL RDW Std Deviation 47.4 H (36.4-46.3) fL RDW Coeff of Jose 13.6 (11.5-14.5) % Plt Count 235 (130-400) K/uL MPV 9.9 (9.4-12.4) fL Immature Gran % (Auto) 0.2 % Neut % (Auto) 52.8 % Lymph % (Auto) 33.0 % Moffat % (Auto) 10.0 % Eos % (Auto) 3.0 % Baso % (Auto) 1.0 % Neut # (Auto) 3.12 (1.40-6.50) K/uL Lymph # (Auto) 1.95 (1.20-3.40) K/uL Moffat # (Auto) 0.59 (0.11-0.59) K/uL Eos # (Auto) 0.18 (0.00-0.50) K/uL Baso # (Auto) 0.06 (0.00-0.20) K/uL Immature Gran # (Auto) 0.01 (0.01-0.20) K/uL PT 11.1 (9.0-12.0) Seconds INR 1.0 (0.9-1.1) APTT 28.8 (21.0-31.0) Seconds PTT Ratio 1.0 POC Sodium (135-144) mmol/L Sodium 138 (136-145) mmol/L POC Potassium (3.3-5.0) mmol/L Potassium 3.3 L (3.5-5.1) mmol/L POC Chloride (101-112) mmol/L Chloride 110 H (98-107) mmol/L Carbon Dioxide 22 (21-32) mmol/L POC Total CO2 (24-31) mmol/L Anion Gap 6 (3-11) POC Anion Gap (16-25) mmol/L POC BUN (7-18) mg/dl BUN 11 (6-23) mg/dl Creatinine 1.06 (0.6-1.2) mg/dl POC Creatinine (0.6-1.3) mg/dl Est Cr Clr Drug Dosing 75.2 ml/min Est GFR ( Amer) 76.6 ml/min Est GFR (Non-Af Amer) 66.1 ml/min BUN/Creatinine Ratio 10.4 (10-20) Glucose 85 (70-99(Fasting)) mg/dl POC Glucose (other) (70-99) mg/dl Calcium 8.4 L (8.6-10.3) mg/dl POC Ioniz Calcium Idris (1.12-1.32) mmol/l Magnesium 1.8 (1.7-2.4) mg/dl Total Bilirubin 0.4 (0.2-1.0) mg/dl AST 36 (13-39) U/L ALT 57 H (7-52) U/L Alkaline Phosphatase 60 (34-104) U/L Troponin I High Sens 2.6 (0-14) pg/ml Total Protein 5.9 L (6.0-8.3) gm/dl Albumin 3.9 (3.4-5.0) gm/dl Globulin 2.0 L (2.5-4.0) gm/dl Albumin/Globulin Ratio 2.0 (0.9-2) Lipase 38 (11-82) U/L Urine Color Urine Appearance (Clear) Urine pH (4.5-7.5) Ur Specific [place] (1.000-1.030) Urine Protein (Negative) Urine Glucose (UA) (Negative) Urine Ketones (Negative) Urine Blood (Negative) Urine Nitrite (Negative) Urine Bilirubin (Negative) Urine Urobilinogen (Negative) Ur Leukocyte Esterase (Negative) POC Ur Test (NEG) Medications Administered Duloxetine HCl (Duloxetine Hcl 30 Mg Cap) 90 mg PO DAILY [facility] Stop: 10/01/23 08:59 Last Admin: 09/01/23 08:35 Dose: 90 mg Documented By: ASHLEY Hydroxychloroquine Sulfate (Hydroxychloroquine Sulfate 200 Mg Tab) 200 mg PO BID [facility] Stop: 09/30/23 22:40 Last Admin: 09/01/23 08:35 Dose: 200 mg Documented By: Admin: 08/31/23 23:28 Dose: 200 mg Documented By: LINK Promethazine HCl 12.5 mg/ (Sodium Chloride) 50.5 mls @ 202 mls/hr IV Q6H PRN PRN Reason: Nausea And Vomiting Stop: 09/30/23 21:22 Last Infusion: 09/01/23 11:57 Dose: 0 mls/hr Documented By: Admin: 09/01/23 11:36 Dose: 202 mls/hr Documented By: ASHLEY Heparin Sodium/Dextrose (Heparin Sodium/Dextrose) 25,000 units in 500 mls @ 24 mls/hr IV .[id number] [facility]; Protocol Stop: 10/01/23 00:14 Last Titration: 09/01/23 08:22 Dose: 1,200 units/hr, 24 mls/hr Documented By: ASHLEY Co-signed By: [id number] Titration: 09/01/23 07:04 Dose: 1,200 units/hr, 24 mls/hr Documented By: ASHLEY Co-signed By: LINK Admin: 09/01/23 00:15 Dose: 1,200 units/hr, 24 mls/hr Documented By: LINK Co-signed By: DMM Morphine Sulfate (Morphine Sulfate 4 Mg/Ml 1 Ml Carp\\Vial) 4 mg IV Q4H PRN PRN Reason: Pain Stop: 09/14/23 21:22 Last Admin: 09/01/23 11:56 Dose: 4 mg Documented By: Admin: 08/31/23 23:25 Dose: 4 mg Documented By: LINK Non-Formulary Medication (Non-Formulary Patient's Own Med) 1 each N/A TID [facility] Stop: 10/01/23 08:59 Last Admin: 09/01/23 15:58 Dose: Not Given Documented By: Admin: 09/01/23 08:24 Dose: Not Given Documented By: ASHLEY Oxycodone HCl (Oxycodone Hcl Ir 5 Mg Tab (Immediate Release)) 5 - 10 mg PO QID PRN PRN Reason: Pain Stop: 09/14/23 21:22 Last Admin: 09/01/23 08:38 Dose: 10 mg Documented By: ASHLEY Pantoprazole Sodium (Pantoprazole 40 Mg Tab) 40 mg PO QAM [facility] Stop: 10/01/23 08:59 Last Admin: 09/01/23 08:35 Dose: 40 mg Documented By: ASHLEY Topiramate (Topiramate 25 Mg Tab) 25 mg PO [facility] Stop: 09/30/23 22:40 Last Admin: 09/01/23 08:36 Dose: 25 mg Documented By: Admin: 08/31/23 23:27 Dose: 25 mg Documented By: LINK Topiramate (Topiramate 50 Mg Tab) 50 mg PO [facility] Stop: 09/30/23 22:40 Last Admin: 09/01/23 08:36 Dose: 50 mg Documented By: Admin: 08/31/23 23:27 Dose: 50 mg Documented By: LINK Coding Level of Care Code 73801 [facility] Intl Hosp Care Lvl 2 Diagnoses Major depression F32.9
[2023-09-01] MEDS ORDERED: metHOTREXate sodium 2.5 MG TAB PO SCH (21:00)
[2023-09-01] MEDS ORDERED: clonazePAM 1 MG TAB PO SCH (21:00)
[2023-09-01] MEDS: clonazePAM 1 MG TAB PO SCH (21:39)
[2023-09-01] MEDS ORDERED: Nursing to Pharmacy Communication SCH (22:30)
[2023-09-01] MEDS ORDERED: Heparin IV Adult Wt-Based Standard *NO* Bolus Protocol IV SCH (23:57)
[2023-09-02] MEDS: PROMETHAZINE HCL 12.5 MG in SODIUM CHLORIDE 0.9% 50 ML IV PRN (01:11)
[2023-09-02] MEDS: oxyCODONE HCL IR 5 MG TAB (IMMEDIATE RELEASE) PO PRN ×3 (04:33→17:08)
[2023-09-02 06:24] LABS: Basophils # (auto) 0.07 K/uL (0.00-0.20); Basophils % (auto) 1.5 %; Eosinophils % (auto) 4.2 %; Hematocrit (blood only) 40.3 % (37.0-47.0); Hemoglobin 13.6 g/dl (12.0-16.0); Immature Granulocytes # (auto) 0.01 K/uL (0.01-0.20); Immature Granulocytes % (auto) 0.2 %; Lymphocytes # (auto) 1.87 K/uL (1.20-3.40); Lymphocytes % (auto) 39.5 %; Mean Corpuscular Hemoglobin 32.3 pg (25.0-34.0); Mean Corpuscular Hgb Conc 33.7 g/dL (32.0-36.0); Mean Corpuscular Volume 95.7 fL (80.0-100.0); Mean Platelet Volume 10.7 fL (9.4-12.4); Monocytes # (auto) 0.46 K/uL (0.11-0.59); Monocytes % (auto) 9.7 %; Neutrophils # (auto) 2.13 K/uL (1.40-6.50); Neutrophils % (auto) 44.9 %; Platelet Count 182 K/uL (130-400); Red Blood Count 4.21 M/uL (4.20-5.40); White Blood Count 4.74 K/ul (4.8-10.8)
[2023-09-02 07:05] LABS: Albumin Globulin Ratio 1.8 (0.9-2); Albumin Level 3.5 gm/dl (3.4-5.0); BUN Creatinine Ratio 10.7 (10-20); Bilirubin,Total 0.6 mg/dl (0.2-1.0); C Reactive Protein 0.9 mg/dl (0-0.5); Calcium 8.3 mg/dl (8.6-10.3); Creatinine Clr Calc Pharmacy 95.9 ml/min; Est GFR (African American) 101.5 ml/min; Est GFR (Non-African American) 87.6 ml/min; Globulin 1.9 gm/dl (2.5-4.0); Magnesium 1.7 mg/dl (1.7-2.4); Partial Thromboplastin Ratio 2.8; Phosphorus 4.2 mg/dl (2.5-4.9); Potassium 3.7 mmol/L (3.5-5.1); Total Protein 5.4 gm/dl (6.0-8.3)
[2023-09-02 07:11] LABS: Partial Thromboplastin Time 78.6 Seconds (21.0-31.0)
[2023-09-02] MEDS: TOPIRAMATE 50 MG TAB PO SCH ×2 (08:38→20:28)
[2023-09-02] MEDS: TOPIRAMATE 25 MG TAB PO SCH ×2 (08:38→20:28)
[2023-09-02] MEDS: FOLIC ACID 1 MG TAB PO SCH (08:39)
[2023-09-02] MEDS: DULoxetine HCL 30 MG CAP PO SCH (08:39)
[2023-09-02] MEDS: PANTOprazole 40 MG TAB PO SCH (08:39)
[2023-09-02] MEDS: HYDROXYCHLOROQUINE SULFATE 200 MG TAB PO SCH ×2 (08:39→20:28)
[2023-09-02] MEDS: clonazePAM 1 MG TAB PO SCH ×2 (08:42→20:28)
--- NOTE | 2023-09-02 12:57 | Hospitalist Progress Note ---
Date of Service September 02, 2023 Assessment & Plan (1) Pulmonary embolism: Plan Pt is 38yoF with PMHx significant for history PE previously on Coumadin, hx of lupus anticoagulant, MTHFR mutation, rheumatoid arthritis, GERD, gastroparesis, anxiety/mood disorder admitted with new RLE DVT and PE. DVT PE RLE DVT with recurrent PE Past history PE with previous Coumadin use (2005) Probable hypercoagulable state (hx of lupus anticoagulant, MTHFR mutation on p revious testing), family history of blood clots Patient predisposed by immobility secondary to uncontrolled right hip pain last month, hx R hip surgery (04/2023) Was on Eliquis 2.5mg BID, holding Continue IV heparin Will likely need lifelong anticoagulation. Chronic R hip pain Uncontrolled right hip pain hx labral tear surgery (04/2023) [facility] Orthopedics consult as per patient's mother request Appreciate recs Pain control Retrieve records from patient's orthopedic surgeon (Dr. Dinh of [facility])- HIM consult was placed. Gastroparesis On domperidone prescribed by [facility] GI [place] specialist Service attempted to get prescriber/pharmacy info for her domeperidone, as this medication is not legally available in the [place] unless provider has obtained approval from the FDA to prescribe or has an approved IND Per admitting provider: "continue patient home domperidone once copy of IND approval obtained from patient's GI specialist office (Marcela Hewitt PA-C of [facility])." On 09/02 nurse navigator received call back from prescriber's office that there was no IND, that they prescribed the medication but pt gets it filled in [place]. Pharmacy and IRB/Investigational drug contact at [facility] Dr. Paulino providing additional advice- Legal contacted and advised that pt can take medication as long as she self administers and extensive documentation is placed in the chart. -Extensive discussion with pt on 09/02 at multiple points about the medication domperidone and that it can affect her heart. Discussed her use of the medication with the multiple medications she is on including morphine, oxycodone, klonipin and prn Ativan she was requesting throughout the day, as well as her other medications. She stated that she absolutely needed to use the domperidone to eat and was willing to sign a waiver releasing [facility] and its providers from any liability with its use. Discussed with pt about 6pm about Legal recommendations- she agrees to self administer, stated that she was aware of the risks and benefits (states she typically gets ekgs [id number] for cardiac monitoring) and that she accepts full liability for any related bad/adverse outcomes. Consider having pt sign generic waiver/AMA-like paperwork to document above as well. Per pharmacy discussion, domperidone only needs to be tapered off on higher doses used for indication. Anxiety and insomnia are potential withdrawal symptoms. Continue to monitor hx rheumatoid arthritis Continue home MTX GERD Stable Anxiety/mood disorder Inpatient psychiatry consult for worsening depression and anxiety as per patient's mother request Appreciate psych recs- started on klonipin with prn Ativan (currently on hold) with high dose morphine and oxycodone for her hip pain Continuous monitoring DVT prophylaxis: currently on heparin drip CODE STATUS: Full code Diet: regular Admission and Anticipated Discharge Date Admission Date: August 31, 2023 Subjective Pt seen multiple times throughout the day. Initially, seen with at bedside. Stated at that time she needed her home domperidone to eat her meals to prevent her gastroparesis from flaring. States her had brought all her home meds for her to take. Later returned to pt's room to discuss her request for Ativan in the setting of Klonipin and morphine use. States that her anxiety tends to flare when she is alone in the room. Later per reported recs from legal, went back to pt's room to discuss recommendation that she would have to self administer the domperidone to which she was in agreement. States that she accepts full liability for the consequences to use after extensive discussion of side effects and why it was banned in the [place]. Pt adamant that she needs it to help with her gastroparesis. Review of Systems Review of Systems: All systems reviewed & are unremarkable except as noted in Subjective Physical Exam Physical Exam: General: Alert, oriented. No acute distress Skin: No noted rashes or bruises Psych: Appropriate mood and affect Neuro: difficulty moving right hip HEENT: NC/AT Chest: Nontender to palpation. CV: RRR, Normal s1, s2. No murmurs appreciated Resp: Breath sounds clear bilaterally, no increased effort of breathing. Abdomen: Soft, nontender, nondistended. Extremities: No erythema to right inguinal area Results & Data Results & Data Vital Signs (Past 12 Hours) Vital Signs Temp Pulse Pulse Resp BP Pulse Ox O2 Del Method 09/02/23 11:19 36.7 C 82 18 103/68 98 Room Air 09/02/23 07:30 36.6 C 72 18 89/60 L 96 Room Air 09/02/23 07:29 71 09/02/23 03:12 36.5 C 69 16 101/68 98 Room Air 09/02/23 02:19 73
[2023-09-02] MEDS: MoRPHine SULFATE 4 MG/ML 1 ML CARP\\VIAL IV PRN ×2 (13:18→22:16)
--- NOTE | 2023-09-02 13:27 | Magnetic Resonance Report ---
MR hip RT wo con HISTORY: Right Hip Pain TECHNIQUE: Multiplanar multisequence MRI of the pelvis and right hip were performed without contrast according to standard departmental protocol. COMPARISON STUDY: Right hip CT 08/31/2023. FINDINGS: There is normal marrow signal intensity seen throughout the visualized osseous structures o f the pelvis and hips. No fracture or dislocation. Cartilage spaces are maintained for age. Bilateral sacroiliac joints are within normal limits. No hip effusions. Mild subcutaneous edema within the pel vis. This is likely chronic. No evidence for avascular necrosis of the femoral heads. An intrauterine device appears in good position. The right hip labrum appears intact. Mild edema within the proximal attachment of the right gluteus minimus muscle. IMPRESSION: 1. No fracture or dislocation within the pelvis or hips. 2. Mild edema within the proximal attachment of the right gluteus minimus muscle. This could represen t a mild muscular strain. ACT 112: Negative or not required by law. Electronically signed by: Adelfo Gonzalez M.D. 09/02/2023 1:25 PM
[2023-09-02 16:15] LABS: Partial Thromboplastin Ratio 2.5
[2023-09-02 16:27] LABS: Partial Thromboplastin Time 71.4 Seconds (21.0-31.0)
[2023-09-02] MEDS ORDERED: NON-FORMULARY PATIENT'S OWN MED SQ ONE (17:00)
[2023-09-02] MEDS: HEPARIN SODIUM/DEXTROSE 25,000 UNITS/500 ML BAG IV SCH (18:41)
[2023-09-02] MEDS ORDERED: metHOTREXate sodium 2.5 MG TAB PO SCH (21:00)
[2023-09-03 00:10] LABS: Partial Thromboplastin Ratio 2.4
[2023-09-03 00:17] LABS: Partial Thromboplastin Time 67.9 Seconds (21.0-31.0)
[2023-09-03] MEDS: oxyCODONE HCL IR 5 MG TAB (IMMEDIATE RELEASE) PO PRN ×2 (02:38→08:56)
[2023-09-03 07:45] LABS: Basophils # (auto) 0.06 K/uL (0.00-0.20); Eosinophils # (auto) 0.21 K/uL (0.00-0.50); Eosinophils % (auto) 3.3 %; Hematocrit (blood only) 38.4 % (37.0-47.0); Hemoglobin 13.1 g/dl (12.0-16.0); Immature Granulocytes # (auto) 0.01 K/uL (0.01-0.20); Immature Granulocytes % (auto) 0.2 %; Lymphocytes # (auto) 2.11 K/uL (1.20-3.40); Lymphocytes % (auto) 33.6 %; Mean Corpuscular Hemoglobin 32.1 pg (25.0-34.0); Mean Corpuscular Hgb Conc 34.1 g/dL (32.0-36.0); Mean Corpuscular Volume 94.1 fL (80.0-100.0); Mean Platelet Volume 9.9 fL (9.4-12.4); Monocytes # (auto) 0.46 K/uL (0.11-0.59); Monocytes % (auto) 7.3 %; Neutrophils # (auto) 3.43 K/uL (1.40-6.50); Neutrophils % (auto) 54.6 %; Platelet Count 227 K/uL (130-400); RDW Standard Deviation 48.5 fL (36.4-46.3); Red Blood Count 4.08 M/uL (4.20-5.40); White Blood Count 6.28 K/ul (4.8-10.8)
[2023-09-03 08:18] LABS: Albumin Globulin Ratio 1.9 (0.9-2); Albumin Level 3.5 gm/dl (3.4-5.0); Bilirubin,Total 0.5 mg/dl (0.2-1.0); Calcium 8.5 mg/dl (8.6-10.3); Creatinine Clr Calc Pharmacy 89.2 ml/min; Est GFR (African American) 93.4 ml/min; Est GFR (Non-African American) 80.5 ml/min; Globulin 1.8 gm/dl (2.5-4.0); Magnesium 1.7 mg/dl (1.7-2.4); Phosphorus 3.9 mg/dl (2.5-4.9); Potassium 3.6 mmol/L (3.5-5.1); Total Protein 5.3 gm/dl (6.0-8.3)
[2023-09-03 08:36] LABS: Partial Thromboplastin Ratio 2.6
[2023-09-03 08:41] LABS: Partial Thromboplastin Time 72.1 Seconds (21.0-31.0)
--- NOTE | 2023-09-03 08:50 | Hospitalist Progress Note ---
Date of Service September 03, 2023 Assessment & Plan (1) Pulmonary embolism: (2) Morbid obesity: (3) Transaminitis: Plan Pt is 38yoF with PMHx significant for history PE previously on Coumadin, hx of lupus anticoagulant, MTHFR mutation, rheumatoid arthritis, GERD, gastroparesis, anxiety/mood disorder admitted with new RLE DVT and PE. DVT PE-provoked RLE DVT with recurrent PE Past history PE with previous Coumadin use (2005) Underlying hypercoagulable state (hx of lupus anticoagulant, MTHFR mutation on previous testing), family history of blood clots Patient predisposed by immobility secondary to uncontrolled right hip pain last month, hx R hip surgery (04/2023) Was on Eliquis 2.5mg BID but not given this immediately post op adjust heparin to apixaban 10mg BID x 7 days, then 5mg BID indefinitely Pt expressed interest in getting an IVC filter. Recommend followup with Hematology and Vascular services as outpatient. Chronic R hip pain Uncontrolled right hip pain hx labral tear surgery (04/2023) [facility] Orth[facility] consult as per patient's mother request Appreciate recs Pain control with high dose narcotics and also using benzos consistently. Both of these medications are addictive and she is high risk for this with u nderlying psychosocial stressors. Retrieve records from patient's orthopedic surgeon (Dr. Dinh of [facility])- HIM consult was placed. Transaminitis No prior records able to review as she is from outside of the system. Normal LFTs on admission with a rise on HD2. No abdominal pain and LFTs appear to be trending down. RUQ liver us ordered, repeat CMP in am. Medication contribution considered, but most of these medications she takes at home. Gastroparesis On domperidone prescribed by [facility] [place] specialist Service attempted to get prescriber/pharmacy info for her domeperidone, as this medication is not legally available in the [place] unless provider has obtained approval from the FDA to prescribe or has an approved IND Per admitting provider: "continue patient home domperidone once copy of IND approval obtained from patient's GI specialist office (Marcela Hewitt [facility]-C of [facility])." On 09/02 nurse navigator received call back from prescriber's office that there was no IND, that they prescribed the medication but pt gets it filled in [place]. Pharmacy and IRB/Investigational drug contact at [facility] Dr. Paulino providing additional advice- Legal contacted and advised that pt can take medication as long as she self administers and extensive documentation is placed in the chart. -Extensive discussion with pt on 09/02 at multiple points about the medication domperidone and that it can affect her heart. Discussed her use of the medication with the multiple medications she is on including morphine, oxycodone, klonipin and prn Ativan she was requesting throughout the day, as well as her other medications. She stated that she absolutely needed to use the domperidone to eat and was willing to sign a waiver [facility] and its providers from any liability with its use. Discussed with pt about 6pm about Legal recommendations- she agrees to self administer, stated that she was aware of the risks and benefits (states she typically gets ekgs [id number] for cardiac monitoring) and that she accepts full liability for any related bad/adverse outcomes. Consider having pt sign generic waiver/AMA-like paperwork to document above as well. Per pharmacy discussion, domperidone only needs to be tapered off on higher doses used for indication. Anxiety and insomnia are potential withdrawal symptoms. Continue to monitor 09/03: chronic, stable. Denies symptoms and is tolerating PO. hx rheumatoid arthritis chronic, stable. Continue home MTX GERD Stable Anxiety/mood disorder Inpatient psychiatry consult for worsening depression and anxiety as per patient's mother request Appreciate psych recs- started on klonipin with prn Ativan (currently on hold) with high dose morphine and oxycodone for her hip pain. Pain management consultation and ortho consultations requested as her underlying hip pain is certainly contributing to these issues. DVT prophylaxis: currently on heparin drip CODE STATUS: Full code Diet: regular I spent a total of60 minutes coordinating, documenting, and providing care for this patient excluding time spent in the performance of separately billed services DO Niyah Ramirez Hospitalist Admission and Anticipated Discharge Date Admission Date: August 31, 2023 Subjective 38-year-old female presents with acute DVT/PE Denies chest pain Reports leg pain on the right secondary to some swelling overnight Tolerating p.o. Ongoing pain and anxiety related to her hip issue. Met with orthopedics Plan to see Dr. John in a.m. Discussed switching to apixaban this evening -she is fine with this anticoagulant Physical Exam Physical Exam: CONSTITUTIONAL: obese, vitals as above, generally well-appearing, NAD EYES: normal conjunctivae, no scleral icterus ENT: external ear and nose normal, MMM NECK: trachea midline RESPIRATORY: clear to auscultation bilaterally, no crackles, rales or wheezes, normal respiratory effort CARDIOVASCULAR: regular rate and rhythm, S1 and 2 heard without murmurs, gallops or rubs, no JVD, no peripheral edema CHEST: inspection of chest was normal GASTROINTESTINAL: soft, nontender, ND, no guarding MUSCULOSKELETAL: no gross focal deficits, moves extremities equally SKIN: warm and dry NEUROLOGIC: CN 2-12 grossly intact, no sensory deficit, normal cognition, normal speech, no tremor PSYCHIATRIC: alert cooperative and oriented to person, place and time. Results & Data Results & Data Vital Signs (Past 12 Hours) Vital Signs Temp Pulse Pulse Resp BP Pulse Ox O2 Del Method 09/03/23 07:38 36.6 C 79 18 86/52 L 95 Room Air 09/03/23 07:14 75 09/02/23 22:01 86 09/03/23 03:48 36.6 C 82 16 94/62 L 93 Room Air 09/02/23 21:53 36.9 C 93 H 18 107/72 98 Room Air Laboratory Results Short CBC 09/03/23 Range/Units 06:40 WBC 6.28 (4.8-10.8) K/ul Hgb 13.1 (12.0-16.0) g/dl Hct 38.4 (37.0-47.0) % Plt Count 227 (130-400) K/uL [facility] 09/03/23 06:40 Sodium 140 Potassium 3.6 Chloride 110 H Carbon Dioxide 25 BUN 9 Creatinine 0.90 Glucose 97 Calcium 8.5 L Liver Function 09/03/23 Range/Units 06:40 Total Bilirubin 0.5 (0.2-1.0) mg/dl AST 147 H (13-39) U/L ALT 228 H (7-52) U/L Alkaline Phosphatase 103 (34-104) U/L Albumin 3.5 (3.4-5.0) gm/dl Medications Administered Current Inpatient Medications Acetaminophen (Acetaminophen 325 Mg Tab) 650 mg PO Q4H PRN PRN Reason: Pain or Fever Stop: 09/30/23 22:40 Baclofen (Baclofen 20 Mg Tab) 20 mg PO HS PRN PRN Reason: Muscle Spasm Stop: 09/30/23 22:40 Last Admin: 09/02/23 20:28 Dose: 20 mg Clonazepam (Clonazepam 1 Mg Tab) 1 mg PO BID [facility] Stop: 10/01/23 20:59 Last Admin: 09/02/23 20:28 Dose: 1 mg Cyclobenzaprine HCl (Cyclobenzaprine Hcl 5 Mg Tab) 5 mg PO BID PRN PRN Reason: pain/spasm Stop: 09/30/23 22:40 Duloxetine HCl (Duloxetine Hcl 30 Mg Cap) 90 mg PO DAILY [facility] Stop: 10/01/23 08:59 Last Admin: 09/02/23 08:39 Dose: 90 mg Folic Acid (Folic Acid 1 Mg Tab) 1 mg PO [id number] [facility] Stop: 10/02/23 08:59 Last Admin: 09/02/23 08:39 Dose: 1 mg Hydroxychloroquine Sulfate (Hydroxychloroquine Sulfate 200 Mg Tab) 200 mg PO BID [facility] Stop: 09/30/23 22:40 Last Admin: 09/02/23 20:28 Dose: 200 mg Promethazine HCl 12.5 mg/ (Sodium Chloride) 50.5 mls @ 202 mls/hr IV Q6H PRN PRN Reason: Nausea And Vomiting Stop: 09/30/23 21:22 Last Infusion: 09/02/23 01:33 Dose: Infused Heparin Sodium/Dextrose (Heparin Sodium/Dextrose) 25,000 units in 500 mls @ 21 mls/hr IV .[id number] [facility]; Protocol Stop: 10/01/23 00:14 Last Titration: 09/03/23 08:47 Dose: 1,000 units/hr, 20 mls/hr Lorazepam (Lorazepam 2 Mg/1 Ml Vial) 0.5 mg IV Q4H PRN PRN Reason: Anxiety/Agitation Stop: 09/30/23 21:22 Magnesium Oxide (Magnesium Oxide 400 Mg Tab) 400 mg PO QAM [facility] Stop: 10/03/23 08:59 Methotrexate (Methotrexate Sodium 2.5 Mg Tab) 20 mg PO Mo@2100 [facility] Stop: 10/08/23 20:59 Morphine Sulfate (Morphine Sulfate 4 Mg/Ml 1 Ml Carp\\Vial) 4 mg IV Q4H PRN PRN Reason: Pain Stop: 09/14/23 21:22 Last Admin: 09/02/23 22:16 Dose: 4 mg Non-Formulary Medication (Non-Formulary Patient's Own Med) 1 each N/A TID [facility] Stop: 10/01/23 08:59 Last Admin: 09/01/23 15:58 Dose: Not Given Oxycodone HCl (Oxycodone Hcl Ir 5 Mg Tab (Immediate Release)) 5 - 10 mg PO QID PRN PRN Reason: Pain Stop: 09/14/23 21:22 Last Admin: 09/03/23 02:38 Dose: 5 mg Pantoprazole Sodium (Pantoprazole 40 Mg Tab) 40 mg PO QAM [facility] Stop: 10/01/23 08:59 Last Admin: 09/02/23 08:39 Dose: 40 mg Potassium Chloride (Potassium Chloride 10 Meq Tabcr) 10 meq PO DAILY [facility] Stop: 10/03/23 08:59 Topiramate (Topiramate 25 Mg Tab) 25 mg PO AMHS [facility] Stop: 09/30/23 22:40 Last Admin: 09/02/23 20:28 Dose: 25 mg Topiramate (Topiramate 50 Mg Tab) 50 mg PO AMHS [facility] Stop: 09/30/23 22:40 Last Admin: 09/02/23 20:28 Dose: 50 mg
[2023-09-03] MEDS: clonazePAM 1 MG TAB PO SCH ×2 (08:57→20:11)
[2023-09-03] MEDS: FOLIC ACID 1 MG TAB PO SCH (08:58)
[2023-09-03] MEDS: DULoxetine HCL 30 MG CAP PO SCH (08:58)
[2023-09-03] MEDS: HYDROXYCHLOROQUINE SULFATE 200 MG TAB PO SCH ×2 (08:58→20:12)
[2023-09-03] MEDS: PANTOprazole 40 MG TAB PO SCH (08:59)
[2023-09-03] MEDS: TOPIRAMATE 25 MG TAB PO SCH ×2 (08:59→20:12)
[2023-09-03] MEDS: MAGNESIUM OXIDE 400 MG TAB PO SCH (08:59)
[2023-09-03] MEDS: TOPIRAMATE 50 MG TAB PO SCH ×2 (08:59→20:12)
[2023-09-03] MEDS: POTASSIUM CHLORIDE 10 MEQ TABCR PO SCH (08:59)
[2023-09-03] MEDS: MoRPHine SULFATE 4 MG/ML 1 ML CARP\\VIAL IV PRN ×2 (12:16→18:30)
[2023-09-03 16:08] LABS: Partial Thromboplastin Ratio 1.7
[2023-09-03 16:17] LABS: Partial Thromboplastin Time 49.3 Seconds (21.0-31.0)
--- NOTE | 2023-09-03 16:18 | Communication Note ---
Date of Service: September 03, 2023 Pt seen at the bedside this afternoon. Patient is somewhat tearful and is having a little bit increased anxiety. She states that she has been somewhat confused on what medication she can take concerning her anxiety since her medication has been changed to Klonopin. We discussed that we would discuss this with her hospitalist service and psychiatry. Today her hip pain is still about the same. She has had no changes. I discussed with the patient that Dr. Tariq has gone over her MRI was just done recently. Can find no indications of fracture or marrow edema that could be causing her discomfort. There is a small amount of fluid in the hip joint however at this time with her lack of inflammatory markers being elevated, he feels infection is less likely at this time. He feels it may be related to her hip arthroscopy in April versus inflammatory reaction with her rheumatoid arthritis possibly at this time. He states that there is nothing surgically that he has to offer her at this time. He feels that he consult for pain management for the possibility of steroid injection in the right hip would be warranted. The patient states that she has had these in the past but last only about 2 months but would possibly give her some relief over that time. The patient states that she understands the situation. She would like to speak to a physician who has a history of doing hip arthroscopy. Currently Dr. Pedro Luis John with [facility] physician group, does do hip arthroscopy. I will reach out to him to see if he could do a secon d opinion for this patient. I have spoken with Dr. Robyn Mercado DO who is now taking over her care for the [facility] hospitalist's service. Patient is currently being weaned off of her heparin and will be starting apixaban likely today or tomorrow. Patient has a history of using Toradol in the past with a question of lowering her blood pressure however this was 20 years ago. Patient is willing to try the Toradol again. Dr. Mercado is okay with this. We are staying away from oral NSAIDs secondary to her current situation with her present PE/DVT and institution of oral anticoagulation. Plans to be to consult pain management as well as consult Dr. John for second opinion
[2023-09-03] MEDS: APIXABAN 5 MG TABLET PO SCH (20:12)
[2023-09-03] MEDS: KETOROLAC TROMETHAMINE 15 MG/ML VIAL IV PRN (20:12)
[2023-09-03] MEDS: HEPARIN SODIUM/DEXTROSE 25,000 UNITS/500 ML BAG IV SCH ×2 (20:36→20:37)
[2023-09-04] MEDS: MoRPHine SULFATE 4 MG/ML 1 ML CARP\\VIAL IV PRN (00:58)
[2023-09-04] MEDS: oxyCODONE HCL IR 5 MG TAB (IMMEDIATE RELEASE) PO PRN ×3 (02:38→17:29)
[2023-09-04 08:13] LABS: Basophils # (auto) 0.04 K/uL (0.00-0.20); Eosinophils # (auto) 0.18 K/uL (0.00-0.50); Eosinophils % (auto) 4.6 %; Hematocrit (blood only) 40.6 % (37.0-47.0); Hemoglobin 13.7 g/dl (12.0-16.0); Immature Granulocytes # (auto) 0.01 K/uL (0.01-0.20); Immature Granulocytes % (auto) 0.3 %; Lymphocytes # (auto) 1.46 K/uL (1.20-3.40); Lymphocytes % (auto) 37.4 %; Mean Corpuscular Hemoglobin 32.2 pg (25.0-34.0); Mean Corpuscular Hgb Conc 33.7 g/dL (32.0-36.0); Mean Corpuscular Volume 95.5 fL (80.0-100.0); Mean Platelet Volume 9.7 fL (9.4-12.4); Monocytes # (auto) 0.29 K/uL (0.11-0.59); Monocytes % (auto) 7.4 %; Neutrophils # (auto) 1.92 K/uL (1.40-6.50); Neutrophils % (auto) 49.3 %; Platelet Count 211 K/uL (130-400); RDW Coefficient of Variation 13.7 % (11.5-14.5); RDW Standard Deviation 47.9 fL (36.4-46.3); Red Blood Count 4.25 M/uL (4.20-5.40)
--- NOTE | 2023-09-04 08:20 | Hospitalist Progress Note ---
Date of Service September 04, 2023 Assessment & Plan (1) Pulmonary embolism: Plan Pt is 38yoF with PMHx significant for history PE previously on Coumadin, hx of lupus anticoagulant, MTHFR mutation, rheumatoid arthritis, GERD, gastroparesis, anxiety/mood disorder admitted with new RLE DVT and PE. DVT PE RLE DVT with recurrent PE Past history PE with previous Coumadin use (2005) Probable hypercoagulable state (hx of lupus anticoagulant, MTHFR mutation on p revious testing), family history of blood clots Patient predisposed by immobility secondary to uncontrolled right hip pain last month, hx R hip surgery (04/2023) Was on Eliquis 2.5mg BID, held while on IV heparin. IV heparin discontinued, currently on loading dose Eliquis once more. Will likely need lifelong anticoagulation. Chronic R hip pain Uncontrolled right hip pain hx labral tear surgery (04/2023) [facility] Orth[facility]ics consult as per patient's mother request-Appreciate recs Pain control Ret[facility] consult was placed. Pt currently requesting consult/ further recs from ortho Dr. Pedro Luis John Lymph node swelling Per pt, she has felt bilateral lymph nodes, concerned about lymphoma CTA chest from 08/31 notes "Axillae: There is no axillary lymphadenopathy." CBC without concern for lymphoma at this time Discussed with pt and outpt follow up with pcp/industrial engineering manager for breast/axillary US and/or mammogram recommended Pt in agreement Gastroparesis On domperidone prescribed by [facility] [place] specialist Service attempted to get prescriber/pharmacy info for her domeperidone, as this medication is not legally available in the [place] unless provider has obtained approval from the FDA to prescribe or has an approved IND Per admitting provider: "continue patient home domperidone once copy of IND approval obtained from patient's GI specialist office (Marc[facility]itt [facility]-C of [facility] On 09/02 nurse navigator received call back from prescriber's office that there was no IND, that they prescribed the medication but pt gets it filled in [place]. Pharmacy and IRB/Investigational drug contact at [facility] Dr. Paulino providing additional advice- Legal contacted and advised that pt can take medication as long as she self administers and extensive documentation is placed in the chart. -Extensive discussion with pt on 09/02 at multiple points about the medication domperidone and that it can affect her heart. Discussed her use of the medication with the multiple medications she is on including morphine, oxycodone, klonipin and prn Ativan she was requesting throughout the day, as well as her other medications. She stated that she absolutely needed to use the domperidone to eat and was willing to sign a waiver releasing [facility] and its providers from any liability with its use. Discussed with pt about 6pm about Legal recommendations- she agrees to self administer, stated that she was aware of the risks and benefits (states she typically gets ekgs [id number] for cardiac monitoring) and that she accepts full liability for any related bad/adverse outcomes. Consider having pt sign generic waiver/AMA-like paperwork to document above as well. Per pharmacy discussion, domperidone only needs to be tapered off on higher doses used for indication. Anxiety and insomnia are potential withdrawal symptoms. Continue to monitor hx rheumatoid arthritis Continue home MTX GERD Stable Anxiety/mood disorder Inpatient psychiatry consult for worsening depression and anxiety as per patient's mother request Appreciate psych recs- started on klonipin with prn Ativan (currently on hold) with high dose morphine and oxycodone for her hip pain Continuous monitoring DVT prophylaxis: currently on PO Eliqus CODE STATUS: Full code Diet: regular Admission and Anticipated Discharge Date Admission Date: August 31, 2023 Subjective Pt seen multiple times. In AM states that orthopedics would like her to stay an additional day. Discussion with pt that her request to see another technology sales specialist would be honored but she was getting stable for discharge and further workup can be completed outpt. Alirio noble agreed. Pt also requesting senna or colace use. In PM, notified by nurse navigator that pt stated she had bilateral axillary lymphadenopathy and had not been evaluated for that. Was concerned that she had lymphoma. Review of Systems Review of Systems: All systems reviewed & are unremarkable except as noted in Subjective Physical Exam Physical Exam: General: Alert, oriented. No acute distress Skin: No noted rashes or bruises Psych: Appropriate mood and affect Neuro: difficulty moving right hip HEENT: NC/AT Chest: Nontender to palpation. CV: RRR, Normal s1, s2. No murmurs appreciated Resp: Breath sounds clear bilaterally, no increased effort of breathing. Abdomen: Soft, nontender, nondistended. Extremities: no swelling in lower extremities bilaterally. Results & Data Results & Data Vital Signs (Past 12 Hours) Vital Signs Temp Pulse Pulse Resp BP Pulse Ox O2 Del Method 09/04/23 08:05 36.8 C 73 18 112/74 98 Room Air 09/04/23 07:36 64 09/04/23 04:32 36.6 C 68 14 95/67 L 96 Room Air 09/03/23 22:02 83 09/03/23 23:52 36.6 C 77 12 97/64 L 96 Room Air 09/03/23 20:45 36.8 C 77 12 108/74 97 Room Air
[2023-09-04] MEDS: DEXLANSOPRAZOLE 60 MG PO SCH (08:32)
[2023-09-04] MEDS: APIXABAN 5 MG TABLET PO SCH ×2 (08:32→20:25)
[2023-09-04] MEDS: TOPIRAMATE 50 MG TAB PO SCH ×2 (08:32→20:24)
[2023-09-04] MEDS: HYDROXYCHLOROQUINE SULFATE 200 MG TAB PO SCH ×2 (08:33→20:25)
[2023-09-04] MEDS: FOLIC ACID 1 MG TAB PO SCH (08:33)
[2023-09-04] MEDS: DULoxetine HCL 30 MG CAP PO SCH (08:33)
[2023-09-04] MEDS: MAGNESIUM OXIDE 400 MG TAB PO SCH (08:33)
[2023-09-04] MEDS: TOPIRAMATE 25 MG TAB PO SCH ×2 (08:33→20:26)
[2023-09-04] MEDS: POTASSIUM CHLORIDE 10 MEQ TABCR PO SCH (08:33)
[2023-09-04] MEDS: clonazePAM 1 MG TAB PO SCH ×2 (08:34→20:30)
[2023-09-04 08:36] LABS: Albumin Globulin Ratio 1.9 (0.9-2); Albumin Level 3.7 gm/dl (3.4-5.0); BUN Creatinine Ratio 8.5 (10-20); Bilirubin,Total 0.5 mg/dl (0.2-1.0); Calcium 8.9 mg/dl (8.6-10.3); Creatinine Clr Calc Pharmacy 75.7 ml/min; Est GFR (African American) 76.6 ml/min; Est GFR (Non-African American) 66.1 ml/min; Globulin 1.9 gm/dl (2.5-4.0); Magnesium 1.8 mg/dl (1.7-2.4); Phosphorus 4.3 mg/dl (2.5-4.9); Potassium 3.8 mmol/L (3.5-5.1); Total Protein 5.6 gm/dl (6.0-8.3)
--- NOTE | 2023-09-04 09:54 | Pain Management Consultation ---
Date of Consultation September 04, 2023 Assessment & Plan (1) Right hip pain: (2) Pulmonary embolism: (3) DVT (deep venous thrombosis): (4) Morbid obesity: Plan 1. If determined to be an appropriate candidate for, and not relatively contraindicated due to surgery about 4 months ago, also the patient being on anticoagulation due to her hypercoagulable state, the patient could be considered for fluoroscopic or ultrasound guided intra-articular right hip injection, however, would want to await Dr. John first seeing the patient and making recommendations based on his expertise in hip arthroscopy. * Did explain to the patient that with her history of already having undergone a revision hip arthroscopy procedure, that if there is "complete labral separation" that she says was found on a previous MRI done at [facility] in [place], then that could possibly preclude her from undergoing any further arthroscopic hip surgery, as a total hip arthroplasty would likely be more recommended if that were indeed the case. * Noncontrast right hip MRI imaging done at [facility], however, notes on the radiology report that the labrum appears intact. * Patient does relate that she feels the only thing that shows her hip anatomy properly is an MRI with contrast. 2. No further changes in pain medications are made. 3. If the patient is ultimately further recommended to undergo an intra- articular right hip injection, this would be facilitated as an outpatient at the [facility] pain management clinic on [address]. * Anticoagulation medications would need to be held pre-procedurally. * At this time, there is no indication for an inpatient interventional procedure via the pain management team. Thank you for this consultation. Pain management team will sign off at this time. Please arrange with our office if the patient is to be scheduled for an outpatient visit. History of Present Illness Attending Physician: Marah Mueller MD History of Present Illness Per the ER provider note on 08/31/2023: "Patient is a 38-year-old female who presents the ER for mid to right upper scapula pain. Pain has been present for the past 24 hours. She denies any chest pain or shortness of breath but notes it is painful with breathing. Does have a history of previous PEs. She had a right labrum repair done initially in June and then it failed her early July. She notes when she stands for the past several weeks she has been having her feet turn blue. She denies any tingling, numbness or weakness. No belly pain, nausea, vomiting, or diarrhea. No dysuria, urgency, or frequency. Previous history of a previous PE 20 years ago. Her surgeon just placed her on Eliquis on the fourth as prophylaxis. She has been taking it since then. Mom provided the history in regards to her previous PE 20 years ago as she was at bedside". She underwent a Doppler study of the extremities and a CT angiogram of the chest. She was found to have a DVT in the right lower extremity calf region, and a PE in the right upper lobe pulmonary artery. Patient has a history of having undergone a right hip arthroscopic surgery for labral repair by [facility] in [place]. She did have to have a revision surgery at some point as well. She says she was doing quite well with the hip, but then she went to move a table in her house on August 13 and noted a pop type pain in her hip. She says that she has been having severe pain and unable to ambulate normally or use the right hip since that time. She states the pain is diffuse throughout the hip, but includes her right buttocks right lateral hip, and right groin region. She also associates weakness to the right lower extremity. She has had to move from her with her to this area to stay with her mother so that she can take care of her. Apparently, her orthopedist in [place] has no further guidance or recommendations for the patient moving forward. Orthopedics has seen her here in the hospital, and they are consulting the pain management team for consideration of a right hip intra-articular injection. Case discussed with Dr. Jessica Lema. Allergies Allergy/AdvReac Type Severity Reaction Status Date / Time amoxicillin Allergy Severe Hives Verified 08/31/23 19:51 ciprofloxacin Allergy Severe Hives Verified 08/31/23 19:51 clarithromycin [From Biaxin] Allergy Severe Hives Verified 08/31/23 19:51 dexamethasone [From Maxitrol] Allergy Severe itching Verified 08/31/23 19:51 herbal drugs [From Ricola] Allergy Severe Anaphylaxis Verified 08/31/23 19:51 infliximab [From Remicade] Allergy Severe DILE Verified 08/31/23 19:51 menthol [From Ricola] Allergy Severe Anaphylaxis Verified 08/31/23 19:51 neomycin [From Maxitrol] Allergy Severe itching Verified 08/31/23 19:51 Penicillins Allergy Severe Hives Verified 08/31/23 19:51 polymyxin B [From Maxitrol] Allergy Severe itching Verified 08/31/23 19:51 celecoxib [From Celebrex] AdvReac Severe Abdominal Verified 08/31/23 19:51 Pain moxifloxacin [From Vigamox] AdvReac Severe itching Verified 08/31/23 19:51 sulfamethoxazole AdvReac Severe Abdominal Verified 08/31/23 19:51 [From Bactrim] Pain trimethoprim [From Bactrim] AdvReac Severe Abdominal Verified 08/31/23 19:51 Pain doxycycline AdvReac Intermediate Diarrhea Verified 08/31/23 19:51 adalimumab [From Humira] AdvReac does not Verified 08/31/23 19:51 work etanercept [From Enbrel] AdvReac amplifies Verified 08/31/23 19:51 migraines Home Medications Medication Instructions Recorded Confirmed Type Bacillus coagulans 2 billion 1 cap PO DAILY 08/31/23 08/31/23 History cell-calcium 140 mg capsule (Digestive Advantage Probiotic) Domperidone 10 mg PO TIDWMEAL 08/31/23 08/31/23 History Medical Marijuana See Rx Instructions .Route .COMPLEX 08/31/23 08/31/23 History albuterol sulfate 90 mcg/actuation 2 puff inhalation BID PRN breathing 08/31/23 08/31/23 History aerosol inhaler apixaban 2.5 mg tablet (Eliquis) 2.5 mg PO BID 08/31/23 08/31/23 History baclofen 20 mg tablet 20 mg PO HS PRN Muscle Spasm 08/31/23 08/31/23 History awphcgl-igp-ofh B8-F8-tjrgcarg 250 1 tab PO DAILY 08/31/23 08/31/23 History mg-40 mg-5 mg-125 unit tablet cholecalciferol (vitamin D3) 50 50 mcg PO QAM 08/31/23 08/31/23 History mcg (2,000 unit) tablet (Vitamin D3) cyclobenzaprine 5 mg tablet 5 - 10 mg PO BID PRN pain/spasm 08/31/23 08/31/23 History dexlansoprazole 60 mg 60 mg PO QAM 08/31/23 08/31/23 History capsule,biphase delayed release diazepam 5 mg tablet 5 mg PO Q6 PRN Anxiety 08/31/23 08/31/23 History diphenhydramine HCl 25 mg tablet 25 - 50 mg PO HS PRN Allergy 08/31/23 08/31/23 History (Benadryl Allergy) Symptoms duloxetine 30 mg capsule,delayed 90 mg PO DAILY 08/31/23 08/31/23 History release eletriptan 40 mg tablet (Relpax) 40 mg PO UD 08/31/23 08/31/23 History epinephrine 0.3 mg/0.3 mL 0.3 mg IM UD PRN Allergic 08/31/23 08/31/23 History injection, auto-injector Reaction,severe folic acid 1 mg tablet 1 mg PO [id number] 08/31/23 08/31/23 History galcanezumab-gnlm 120 mg/mL 120 mg subcut MONTHLY 08/31/23 08/31/23 History subcutaneous pen injector (Emgality Pen) hydrocodone 5 mg-acetaminophen 325 1 tab PO .EVERY 4-6 HOURS PRN Pain 08/31/23 08/31/23 History mg tablet hydroxychloroquine 200 mg tablet 200 mg PO BID 08/31/23 08/31/23 History levocetirizine 5 mg tablet (Xyzal) 5 mg PO .ON HOLD AT PRESENT 08/31/23 08/31/23 History magnesium oxide 400 mg PO DAILY 08/31/23 08/31/23 History methotrexate sodium 2.5 mg tablet 20 mg PO WK 08/31/23 08/31/23 History methylprednisolone 0 mg PO UD y 08/31/23 08/31/23 History multivit,Ca,jhw-clxd-IS-guarana-caff 1 tab PO DAILY 08/31/23 08/31/23 History 18 mg iron-400 mcg-180 mg tablet potassium chloride 20 mEq 20 meq PO QAM 08/31/23 08/31/23 History tablet,extended release(part/cryst) (Klor-Con M) prednisone 10 mg tablet 0 mg PO UD PRN RA flares 08/31/23 08/31/23 History promethazine 12.5 mg tablet 6.25 mg PO Q6 PRN Nausea/vomiting 08/31/23 08/31/23 History topiramate 25 mg tablet 25 mg PO AMHS 08/31/23 08/31/23 History topiramate 50 mg tablet 50 mg PO AMHS 08/31/23 08/31/23 History Pain History Chief Complaint Chief Complaint: right hip pain Patient History Medical History (Updated 09/04/23 @ 08:55 by Robyn Mercado, DO) DVT (deep venous thrombosis) Pulmonary embolism Right hip pain Social History Smoking Status: Former smoker Second Hand Exposure: No; Do You Dip or Chew Tobacco: No; Tobacco Cessation Education Requested by Patient: No Hx Alcohol Use: Yes Hx Substance Use: Yes Last Used Substance: Days (ago) Last Used Substance Other:: 19 Preferred Language: Macedonian Communication Ability: Effective Assorter Required: No Beliefs That Will Affect Care: None Current Living Situation: Spouse Other Information That Helps Us Care for You: No Feels Safe at Home: Yes Safety Concerns: Feels Safe At This Time Assistive Devices: Crutches Physical Exam Physical Exam: GENERAL: Speech and cognition is intact. Mood and affect is appropriate. Does not appear in acute distress. Lying in bed, appears comfortable. HEAD: Normocephalic; atraumatic. NECK: Trachea is midline. CHEST: Regular chest respiration and excursion. EXTREMITIES: Distal sensation and pulses intact bilaterally. NEURO: CN II-XII grossly intact with no focal deficits noted. Awake, alert, and oriented x 3. Distal sensation of lower legs intact. SKIN: No lesions, erythema, or rashes noted. Multiple incisional cicatrix noted to anterior and lateral right hip, which appear well-healed and without evidence of erythema, drainage, or infection. LOWER EXTREMITIES: R Hip flexion 3/5; knee extension 4-/5; knee flexion 4-/5; ankle dorsiflexion 4/5; ankle plantar flexion 4/5; EHL 4/5 L Hip flexion 5/5; knee extension 5/5; knee flexion 5/5; ankle dorsiflexion 5/5; ankle plantar flexion 5/5; EHL 5/5 Exam significantly limited due to submaximal effort Musculoskeletal: Hip: + surgical incision, + limited ROM of hip (flex - active 0, passive 80; ER - passive 40; IR - passive 10), + JED test positive and + FADIR test positive; hip normal to inspection, no skin erythema, no ecchymosis and log roll test negative + Pain with all planes of motion Results (Pain Clinic) Diagnostic Review MRI Findings: MR hip RT wo con HISTORY: Right Hip Pain TECHNIQUE: Multiplanar multisequence MRI of the pelvis and right hip were performed without contrast according to standard departmental protocol. COMPARISON STUDY: Right hip CT 08/31/2023. FINDINGS: There is normal marrow signal intensity seen throughout the visualized osseous structures of the pelvis and hips. No fracture or dislocation. Cartilage spaces are maintained for age. Bilateral sacroiliac joints are within normal limits. No hip effusions. Mild subcutaneous edema within the pelvis. This is likely chronic. No evidence for avascular necrosis of the femoral heads. An intrauterine device appears in good position. The right hip labrum appears intact. Mild edema within the proximal attachment of the right gluteus minimus muscle. IMPRESSION: 1. No fracture or dislocation within the pelvis or hips. 2. Mild edema within the proximal attachment of the right gluteus minimus muscle. This could represent a mild muscular strain. ACT 112: Negative or not required by law. Electronically signed by: Adelfo Gonzalez M.D. 09/02/2023 1:25 PM Dictated:09/02/231316 Transcribed: 09/02/231316 CT Findings: Exam(s): CT RIGHT HIP Without Contrast EXAM: CT Right Lower Extremity Without Intravenous Contrast, Hip CLINICAL HISTORY: Reason for exam: worsening pain. TECHNIQUE: Axial computed tomography images of the right hip without intravenous contrast. Automated exposure control was utilized for the study. A dose lowering technique was utilized adhering to the principles of ALARA. COMPARISON: No relevant prior studies available. FINDINGS: Bones/joints: Osseous demineralization. No fracture or dislocation. Soft tissues: Unremarkable. No soft tissue hematoma. Reproductive: IUD in the uterus. Other findings: The need for MRI should be determined clinically. IMPRESSION: 1. No fracture or dislocation. 2. The need for MRI should be determined clinically. Electronically signed by: Kale Stanton MD 08/31/23 23:38 PM Dictated:08/31/232337 Transcribed: 08/31/232337 Radiology Findings: SINGLE VIEW PELVIS; 2 VIEWS RIGHT HIP CLINICAL HISTORY: Right hip pain. FINDINGS: An AP view of the pelvis with AP and frog-leg views of the right hip are obtained. No prior studies are available for comparison at the time of dictation. The skeletal structures well mineralized. There is no radiographic evidence of acute fracture involving the hips or bony pelvis. The joint spaces of the hips are maintained. There is degenerative sclerosis of the sacroiliac joints. The overlying soft tissues are within normal limits. An intrauterine device projects over the pelvis. Suture material projects over the right midabdomen. IMPRESSION: No acute bony abnormality is identified. Electronically signed by: Usama Harrison M.D. 08/31/2023 6:02 PM Dictated:08/31/23 180 Transcribed: 08/31/23 180
--- NOTE | 2023-09-04 11:33 | Ultrasound Report ---
ABDOMINAL ULTRASOUND, RIGHT UPPER QUADRANT HISTORY: Acutely elevated LFTs elevated transaminases. COMPARISON: CT chest 08/31/2023 FINDINGS: Pancreas: The pancreas is obscured by bowel gas. Liver: Cholecystectomy. Gallbladder: No gallbladder wall thickening. No gallstones. CBD: 0.7 cm. Right kidney: No hydronephrosis. IMPRESSION: No significant abnormality identified within the right upper quadrant. ACT 112: Negative or not required by law. Electronically signed by: Enrike Perez M.D. 09/04/2023 11:31 AM
[2023-09-04] MEDS ORDERED: DOCUSATE SODIUM/SENNA 50/8.6MG TAB PO ONE (13:28)
[2023-09-04] MEDS: KETOROLAC TROMETHAMINE 15 MG/ML VIAL IV PRN ×2 (14:43→21:08)
--- NOTE | 2023-09-04 16:01 | Orthopedic Consultation ---
Date of Service September 04, 2023 Assessment & Plan (1) Right hip pain: 38-year-old female with severe onset and recurrent right hip pain after revision labral repair at 4 months postop. Symptoms developed suddenly and are more consistent with soft tissue injury versus infection. Laboratory markers of all been suggestive of a noninfectious process. Exam is encouraging. There is evidence of edema in the gluteus minimus muscle origin at the site of her primary pain on exam. She also has lower abdominal pain which could be consistent with a sports hernia. There is also potential for iliopsoas strain, capsulitis, or capsular injury at this point postoperatively when there is noted capsulitis that develops. Given her overall clinical picture, I do not recommend any additional hip interventions. The only consideration will be a latent infection which is unlikely given her laboratory evaluation. I would recommend continuing with IV NSAIDs until pain is more reasonably controlled and she can advance with physical therapy for safe discharge. She can have visiting services at home including outpatient therapy. I do recommend following up with Dr. Dinh's office upon discharge. She is weightbearing and range of motion as tolerated. She will likely need assistive device to ambulate safely. The working diagnoses are gluteus minimus strain and capsulitis. If pain continues to be an issue for disposition, would consider pain management consult. History of Present Illness Reason for Consultation: Right hip pain, acute during the subacute postoperative period Requesting Physician: Avery Reid/Darren Le Attending Physician: Marah Mueller MD 38-year-old female with a history of left hip arthroscopy remotely and a right revision hip arthroscopy for labral repair in April 2023 admitted to the hospital for new onset VTE and worsening right hip pain. She states that she had done pr tracy well until she was about to return to work. She was organizing a folding table and pushed it. She had immediate pain in her hip which made it difficult to walk. She is in the area with her parents. Her surgery was in [place]. She is scheduled for further follow-up with Dr. Dinh at [facility]. She denies any fevers nor chills. Her previous hip scopes were unremarkable. Unfortunately her right side has been problematic and required a revision repair. Op reports not available at this time. She is admitted with significant hip pain that is compromising her ability to walk. Says it hurts to move it and hurts to put weight on it. This is unusual for her postoperative. She is anticoagulated for pulmonary embolism. Allergies Allergy/AdvReac Type Severity Reaction Status Date / Time amoxicillin Allergy Severe Hives Verified 08/31/23 19:51 ciprofloxacin Allergy Severe Hives Verified 08/31/23 19:51 clarithromycin [From Biaxin] Allergy Severe Hives Verified 08/31/23 19:51 dexamethasone [From Maxitrol] Allergy Severe itching Verified 08/31/23 19:51 herbal drugs [From Ricola] Allergy Severe Anaphylaxis Verified 08/31/23 19:51 infliximab [From Remicade] Allergy Severe DILE Verified 08/31/23 19:51 menthol [From Ricola] Allergy Severe Anaphylaxis Verified 08/31/23 19:51 neomycin [From Maxitrol] Allergy Severe itching Verified 08/31/23 19:51 Penicillins Allergy Severe Hives Verified 08/31/23 19:51 polymyxin B [From Maxitrol] Allergy Severe itching Verified 08/31/23 19:51 celecoxib [From Celebrex] AdvReac Severe Abdominal Verified 08/31/23 19:51 Pain moxifloxacin [From Vigamox] AdvReac Severe itching Verified 08/31/23 19:51 sulfamethoxazole AdvReac Severe Abdominal Verified 08/31/23 19:51 [From Bactrim] Pain trimethoprim [From Bactrim] AdvReac Severe Abdominal Verified 08/31/23 19:51 Pain doxycycline AdvReac Intermediate Diarrhea Verified 08/31/23 19:51 adalimumab [From Humira] AdvReac does not Verified 08/31/23 19:51 work etanercept [From Enbrel] AdvReac amplifies Verified 08/31/23 19:51 migraines Home Medications Medication Instructions Recorded Confirmed Type Bacillus coagulans 2 billion 1 cap PO DAILY 08/31/23 08/31/23 History cell-calcium 140 mg capsule (Digestive Advantage Probiotic) Domperidone 10 mg PO TIDWMEAL 08/31/23 08/31/23 History Medical Marijuana See Rx Instructions .Route .COMPLEX 08/31/23 08/31/23 History albuterol sulfate 90 mcg/actuation 2 puff inhalation BID PRN breathing 08/31/23 08/31/23 History aerosol inhaler apixaban 2.5 mg tablet (Eliquis) 2.5 mg PO BID 08/31/23 08/31/23 History baclofen 20 mg tablet 20 mg PO HS PRN Muscle Spasm 08/31/23 08/31/23 History vxyusui-axa-xtq U5-V8-soopstwz 250 1 tab PO DAILY 08/31/23 08/31/23 History mg-40 mg-5 mg-125 unit tablet cholecalciferol (vitamin D3) 50 50 mcg PO QAM 08/31/23 08/31/23 History mcg (2,000 unit) tablet (Vitamin D3) cyclobenzaprine 5 mg tablet 5 - 10 mg PO BID PRN pain/spasm 08/31/23 08/31/23 History dexlansoprazole 60 mg 60 mg PO QAM 08/31/23 08/31/23 History capsule,biphase delayed release diazepam 5 mg tablet 5 mg PO Q6 PRN Anxiety 08/31/23 08/31/23 History diphenhydramine HCl 25 mg tablet 25 - 50 mg PO HS PRN Allergy 08/31/23 08/31/23 History (Benadryl Allergy) Symptoms duloxetine 30 mg capsule,delayed 90 mg PO DAILY 08/31/23 08/31/23 History release eletriptan 40 mg tablet (Relpax) 40 mg PO UD 08/31/23 08/31/23 History epinephrine 0.3 mg/0.3 mL 0.3 mg IM UD PRN Allergic 08/31/23 08/31/23 History injection, auto-injector Reaction,severe folic acid 1 mg tablet 1 mg PO 6XWK 08/31/23 08/31/23 History galcanezumab-gnlm 120 mg/mL 120 mg subcut MONTHLY 08/31/23 08/31/23 History subcutaneous pen injector (Emgality Pen) hydrocodone 5 mg-acetaminophen 325 1 tab PO .EVERY 4-6 HOURS PRN Pain 08/31/23 08/31/23 History mg tablet hydroxychloroquine 200 mg tablet 200 mg PO BID 08/31/23 08/31/23 History levocetirizine 5 mg tablet (Xyzal) 5 mg PO .ON HOLD AT PRESENT 08/31/23 08/31/23 History magnesium oxide 400 mg PO DAILY 08/31/23 08/31/23 History methotrexate sodium 2.5 mg tablet 20 mg PO WK 08/31/23 08/31/23 History methylprednisolone 0 mg PO UD y 08/31/23 08/31/23 History multivit,Ca,fcy-duip-DR-guarana-caff 1 tab PO DAILY 08/31/23 08/31/23 History 18 mg iron-400 mcg-180 mg tablet potassium chloride 20 mEq 20 meq PO QAM 08/31/23 08/31/23 History tablet,extended release(part/cryst) (Klor-Con M) prednisone 10 mg tablet 0 mg PO UD PRN RA flares 08/31/23 08/31/23 History promethazine 12.5 mg tablet 6.25 mg PO Q6 PRN Nausea/vomiting 08/31/23 08/31/23 History topiramate 25 mg tablet 25 mg PO AMHS 08/31/23 08/31/23 History topiramate 50 mg tablet 50 mg PO AMHS 08/31/23 08/31/23 History Past Med/Surg History Medical History DVT (deep venous thrombosis) Pulmonary embolism Right hip pain Social History Smoking Status: Former smoker Second Hand Exposure: No; Do You Dip or Chew Tobacco: No; Tobacco Cessation Education Requested by Patient: No Hx Alcohol Use: Yes Hx Substance Use: Yes Last Used Substance: Days (ago) Last Used Substance Other:: 19 Preferred Language: Bulgarian Communication Ability: Effective [employer] Vitamin Consultant Required: No Beliefs That Will Affect Care: None Current Living Situation: Spouse Other Information That Helps Us Care for You: No Feels Safe at Home: Yes Safety Concerns: Feels Safe At This Time Assistive Devices: Crutches Review of Systems All systems reviewed & are unremarkable except as noted in HPI & below. Physical Exam General: Alert and cooperative. No acute distress. Right hip: Symmetric leg lengths. No diffuse edema in the right affected leg. Postsurgical wounds are well-healed. On supine examination, she has no pain or irritability on logroll. She does have mild pain with active and active assisted straight leg raise and cannot provide any resistance in [facility] due to weakness and pain. With gentle active assistance she can flex to about 100 degrees. She has pain with internal rotation about 10 degrees and about 45 degrees external rotation. Did not attempt impingement maneuvers given her previous surgery. She is exquisitely tender just posterior to the a ASIS and AIIS, in the region of the gluteus minimus muscle origin. More diffuse tenderness located along the gluteal musculature more posteriorly. Very mild tenderness of the greater trochanter. Lateral cubitus exam shows ability to abduct against gravity and activate the glutes musculature well. Full active and passive range of motion the knee. Distal neurovascular intact. Constitutional WD/WN, vitals as above Respiratory normal respiratory effort; no respiratory distress Cardiovascular Extremities: normal capillary refill; no edema Skin no rashes, warm and dry Psychiatric A+Ox3, euthymic affect Results & Data Results & Data Laboratory Results Laboratory Tests 09/02/23 09/02/23 09/03/23 05:33 05:53 06:40 WBC 6.28 ESR 5 C-Reactive Protein 0.[address] scan from [facility] shows no obvious fractures nor avulsions. She is appropriately placed anchor tracks that appear to be all suture based anchors. No evidence of intra-articular debris. No evidence of bony erosions nor widening of the suture anchor tracts. Normal bony architecture in the intramedullary bone of the acetabulum and femoral head. MRI report from July 2023 at [facility] was an arthrogram. She showed me the report. It states there is some evidence of chondral labral separation but no displaced tear. MRI from 09/02/2023 here at [facility] was a noncontrast and nonarthrogram study but adequate. There is a slight effusion, which can be expected at this point postoperatively for the result of a capsular injury. No evidence of an infectious effusion. No capsular hypertrophy. There is a anterolateral capsular rent that may be healing repair site or a capsulotomy that was not repaired or opened up acutely with her new symptoms. The iliopsoas tendon has normal architecture as it traverses the anterior aspect of the femoral acetabular joint. There is no excessive edema. No evidence of rupture. There is no muscle edema more proximally on the posterior pelvic wall. No evidence of cartilage disruptions. No loose bodies. The labrum appears to be intact, certainly there is no displaced or disrupted repair. The effusion is an adequate substitute for an arthrogram in this case. I would not recommend an arthrogram of the state postop. PG Care Time/CCT Total # of Minutes Spent Total Time Spent with Patient: Total time spent is greater than 50% in coordination of care (as documented) at patient's floor/unit and/or counseling patient: Coding Level of Care Code 12311 IN/OBS CONSULT LVL 4,60M Diagnoses Right hip pain M25.551
--- NOTE | 2023-09-05 03:27 | Communication Note ---
Date of Service: September 05, 2023 case reviewed with hospitalist last pm as patient reported ongoing concerns about breakthrough anxiety and prn Ativan on hold. Previously had been consid ering TID dosing of Klonopin but per discussion with Dr. Mueller further adjustment of her benzodiazepine on hold pending contract with patient around the use of a previously unlisted medication domperidone, a dopamine antagonist that patient is using for N/gastroparesis and obtaining through a pharmacy in [place]. Pain management and ortho have seen patient in anticipation of discharge. At this time our service has no further recs other than titration of Cymbalta to 120 mg could be considered as for pain/fibro and mood. She was referred to a psychiatric prescriber. Although she has expressed significant depression and even passive thoughts of in frustration over her medical condition, she has been clear throughout contacts with our service that she has no intent or plan to act on these. Her and parents with whom she is staying are aware. Will reconfim she has no access to weapons and a family member is involved in supervising her medication as access to benzos and opiates.
[2023-09-05 08:12] LABS: Basophils # (auto) 0.03 K/uL (0.00-0.20); Basophils % (auto) 0.6 %; Eosinophils # (auto) 0.26 K/uL (0.00-0.50); Eosinophils % (auto) 5.5 %; Hematocrit (blood only) 37.9 % (37.0-47.0); Hemoglobin 12.8 g/dl (12.0-16.0); Immature Granulocytes # (auto) 0.01 K/uL (0.01-0.20); Immature Granulocytes % (auto) 0.2 %; Lymphocytes # (auto) 1.68 K/uL (1.20-3.40); Lymphocytes % (auto) 35.6 %; Mean Corpuscular Hemoglobin 32.1 pg (25.0-34.0); Mean Corpuscular Hgb Conc 33.8 g/dL (32.0-36.0); Mean Platelet Volume 10.1 fL (9.4-12.4); Monocytes # (auto) 0.45 K/uL (0.11-0.59); Monocytes % (auto) 9.5 %; Neutrophils # (auto) 2.29 K/uL (1.40-6.50); Neutrophils % (auto) 48.6 %; Platelet Count 208 K/uL (130-400); RDW Coefficient of Variation 13.4 % (11.5-14.5); Red Blood Count 3.99 M/uL (4.20-5.40); White Blood Count 4.72 K/ul (4.8-10.8)
[2023-09-05 08:27] LABS: Albumin Globulin Ratio 1.9 (0.9-2); Albumin Level 3.4 gm/dl (3.4-5.0); BUN Creatinine Ratio 12.2 (10-20); Bilirubin,Total 0.5 mg/dl (0.2-1.0); Calcium 8.7 mg/dl (8.6-10.3); Creatinine Clr Calc Pharmacy 81.9 ml/min; Est GFR (African American) 84.2 ml/min; Est GFR (Non-African American) 72.7 ml/min; Globulin 1.8 gm/dl (2.5-4.0); Magnesium 1.7 mg/dl (1.7-2.4); Phosphorus 3.9 mg/dl (2.5-4.9); Potassium 3.7 mmol/L (3.5-5.1); Total Protein 5.2 gm/dl (6.0-8.3)
[2023-09-05] MEDS ORDERED: DOCUSATE SODIUM/SENNA 50/8.6MG TAB PO SCH (09:00)
[2023-09-05] MEDS: DULoxetine HCL 30 MG CAP PO SCH (09:02)
[2023-09-05] MEDS: DEXLANSOPRAZOLE 60 MG PO SCH (09:02)
[2023-09-05] MEDS: HYDROXYCHLOROQUINE SULFATE 200 MG TAB PO SCH (09:02)
[2023-09-05] MEDS: POTASSIUM CHLORIDE 10 MEQ TABCR PO SCH (09:02)
[2023-09-05] MEDS: TOPIRAMATE 25 MG TAB PO SCH (09:02)
[2023-09-05] MEDS: FOLIC ACID 1 MG TAB PO SCH (09:02)
[2023-09-05] MEDS: APIXABAN 5 MG TABLET PO SCH (09:02)
[2023-09-05] MEDS: TOPIRAMATE 50 MG TAB PO SCH (09:02)
[2023-09-05] MEDS: clonazePAM 1 MG TAB PO SCH (09:05)
[2023-09-05] MEDS: MAGNESIUM OXIDE 400 MG TAB PO SCH (12:19)
[2023-09-05] MEDS: oxyCODONE HCL IR 5 MG TAB (IMMEDIATE RELEASE) PO PRN (12:19)
--- NOTE | 2023-09-05 13:01 | Discharge Summary ---
Discharge Summary Date of Service September 05, 2023 Notes For Next Care Provider please recheck LFTs for resolution holding methotrexate until that time please consider followup to re-establish care with pain management given need for consistent narcotics started on scheduled benzodiazepines, and will need to establish mental health outpatient care. Medication Changes From Visit Apixaban Clonazepam 1 mg p.o. twice daily Oxycodone 5 mg as needed Hold methotrexate pending LFT evaluation in 1 to 2 weeks. Admission HPI Per Admitting Provider History obtained from patient, family, and records. Patient is a current resident of [place] [place] who has been in town since last week to be cared for by her mother who lives locally following progressive disability from right hip pain since last month. Medical history significant for history PE status post Coumadin, hx of lupus anticoagulant, MTHFR mutation, rheumatoid arthritis, GERD, gastroparesis, anxiety/mood disorder, past tobacco abuse. Last [facility] confinement February 2006 for right lower lobe pulmonary embolism 1 week after appendectomy done at [facility]. Patient was at student at [employer] at time of urgent surgery and was recuperating back home in [facility]. Patient was a smoker and taking OCP at the time of incident. Lupus anticoagulant, 1 copy of C677T MTHFR mutation and 1 copy of a 1298C mutation detected as per documentation. Patient discharged on Coumadin which she took for a year following a synthetic cloth binding cutter's recommendations. Patient underwent elective right hip surgery for labral tear by [facility] last April 2023. Right hip pain initially controlled after procedure. Last month, patient noted worsening right hip pain after she pushed a table. Uncontrolled pain and decreased mobility over the last few weeks. Patient does not feel her surgeon is listening to her. No fever, no chills, no chest pain, no SOB. Patient moved in with mother last week to get help from increasing disability from right hip pain. Pain so bad that patient mood and anxiety are worse. Fleeting thoughts of taking all her pills to end her pain. No current suicidal ideations. Patient and mother contemplating getting a second opinion for patient's worsening right hip pain complaints. Right lower leg noted to be swollen last week. Patient requested [facility] surgeon to prescribe her prophylactic medication for blood clots given her history. Eliquis 2.5 mg p.o. twice daily subsequently prescribed. This afternoon, patient noted right upper shoulder pain. Increase RLE swelling noted today despite Eliquis intake. No chest pain or SOB at home. No abdominal pain. Occasional bleeding from hemorrhoids. Patient brought to ER for evaluation. Substernal chest pain and shortness of breath while waiting for testing. Admission Exam Per Admitting Provider GENERAL: Slightly uncomfortable, tearful, obese, no respiratory distress SKIN: Normal color, warm HEENT: [place] palpebral conjunctivae, no ptosis, dry buccal mucosa NECK : Supple, no tenderness CHEST : CTA, no tenderness HEART : RRR, no obvious murmurs ABDOMEN: Some distention, nontender EXTREMITIES : Right hip tenderness, tender RLE swelling NEUROLOGIC : Coherent, no facial asymmetry, no other gross focality Principal Dx & Hospital Course #1 = Principal Diagnosis (1) Pulmonary embolism: (2) DVT (deep venous thrombosis): (3) Transaminitis: (4) Post-operative state: (5) Morbid obesity: (6) Muscle strain of gluteal region: Plan Patient is a current resident of [facility] who has been in town since last week to be cared for by her mother who lives locally following progressive disability from right hip pain since last month. Medical history significant for history PE status post Coumadin, hx of lupus anticoagulant, MTHFR mutation, rheumatoid arthritis, GERD, gastroparesis, anxiety/mood disorder, past tobacco abuse. Last [facility] confinement February 2006 for right lower lobe pulmonary embolism 1 week after appendectomy done at [facility]. Patient was at student at [employer] at time of urgent surgery and was recuperating back home in [facility]. Patient was a smoker and taking OCP at the time of incident. Lupus anticoagulant, 1 copy of C677T MTHFR mutation and 1 copy of a 1298C mutation detected as per documentation. Patient discharged on Coumadin which she took for a year following a hematolo gist's recommendations. Patient underwent elective right hip surgery for labral tear by [facility] last April 2023. Right hip pain initially controlled after procedure. Last month, patient noted worsening right hip pain after she pushed a table. Uncontrolled pain and decreased mobility over the last few weeks. Patient does not feel her surgeon is listening to her. No fever, no chills, no chest pain, no SOB. Patient moved in with mother last week to get help from increasing disability from right hip pain. Pain so bad that patient mood and anxiety are worse. Fleeting thoughts of taking all her pills to end her pain. No current suicidal ideations. Patient and mother contemplating getting a second opinion for patient's worsening right hip pain complaints. Psychiatry saw her inpatient and started clonazepam twice daily. No active SI or plans to harm herself; no indication for admission to inpatient mental health unit per psychiatrist. Recommend continued outpatient care for mental health Right lower leg noted to be swollen last week. Patient requested [facility] surgeon to prescribe her prophylactic medication for blood clots given her history. Eliquis 2.5 mg p.o. twice daily subsequently prescribed. She later noted right upper shoulder pain. Increase RLE swelling noted today despite Eliquis intake. No chest pain or SOB at home. No abdominal pain. Occasional bleeding from hemorrhoids. Patient brought to ER for evaluation. Substernal chest pain and shortness of breath while waiting for testing. Workup revealed age-indeterminate pulmonary embolus within a segmental branch of the right upper lobe pulmonary artery. Ultrasound of the right lower extremity revealed an occlusive deep venous thrombosis in the right calf. She was placed on heparin and later transitioned to Eliquis. She had questions about placement of an IVC filter and was encouraged to revisit this as an outpatient with a synthetic cloth binding cutter. Clots were likely provoked given immobility secondary to uncontrolled right hip pain postoperatively. Right hip pain remained uncontrolled and she was consistently taking oxycodone here with as needed morphine IV. She was seen by [facility] while admitted. Laboratory markers were not suggestive of a noninfectious process and exam support at this. There was evidence of edema in the gluteus minimus muscle origin at the site of her primary pain on exam. She also had lower abdominal pain which could be consistent with a sports hernia. There was also potential for an iliopsoas strain, capsulitis or capsular injury at this point posto peratively when there is noted capsulitis that develops. Given her overall clinical picture it was not recommended to have additional hip interventions. The only consideration would be a latent infection which was unlikely given her laboratory evaluation, lack of fever etc. Conservative therapy was recommended including advancement to physical therapy once able as outpatient. Recommend following up with Dr. Dinh's office following discharge. She is weightbearing and range of motion as tolerated and will continue to use assistive device with her crutches to ambulate safely. The working diagnosis was gluteus minimus strain and capsulitis. Pain management also saw patient while admitted and offered suggestions for pain control. Lab work also revealed an elevation in liver function tests into the low 200s with a trend down prior to discharge. Right upper quadrant ultrasound was unrevealing for any significant abnormality. She is on several medications which may contribute to this including methotrexate which was held at time of discharge. Close follow-up with primary care with a repeat liver function panel was recommended. There were no other signs of infection suggestive of hepatitis. Defer additional work-up to outpatient PCP. At time of discharge she was hemodynamically stable and afebrile and tolerating p.o. She was discharged in stable condition. Close follow up with primary care recommended. Discharge Exam CONSTITUTIONAL: obese, vitals as above, generally well-appearing, NAD EYES: normal conjunctivae, no scleral icterus ENT: external ear and nose normal, MMM NECK: trachea midline RESPIRATORY: clear to auscultation bilaterally, no crackles, rales or wheezes, normal respiratory effort CARDIOVASCULAR: regular rate and rhythm, S1 and 2 heard without murmurs, gallops or rubs, no JVD, no peripheral edema CHEST: inspection of chest was normal GASTROINTESTINAL: soft, nontender, ND, no guarding MUSCULOSKELETAL: no gross focal deficits, moves extremities equally SKIN: warm and dry NEUROLOGIC: CN 2-12 grossly intact, no sensory deficit, normal cognition, normal speech, no tremor PSYCHIATRIC: alert cooperative and oriented to person, place and time. Updated Medication List Medication Instructions Recorded Confirmed Type Bacillus coagulans 2 billion 1 cap PO DAILY 08/31/23 08/31/23 History cell-calcium 140 mg capsule (Digestive Advantage Probiotic) Domperidone 10 mg PO TIDWMEAL 08/31/23 08/31/23 History Medical Marijuana See Rx Instructions .Route .COMPLEX 08/31/23 08/31/23 History albuterol sulfate 90 mcg/actuation 2 puff inhalation BID PRN breathing 08/31/23 08/31/23 History aerosol inhaler baclofen 20 mg tablet 20 mg PO HS PRN Muscle Spasm 08/31/23 08/31/23 History fhyszau-nbb-lpr K9-B5-zodgzmzi 250 1 tab PO DAILY 08/31/23 08/31/23 History mg-40 mg-5 mg-125 unit tablet cholecalciferol (vitamin D3) 50 50 mcg PO QAM 08/31/23 08/31/23 History mcg (2,000 unit) tablet (Vitamin D3) cyclobenzaprine 5 mg tablet 5 - 10 mg PO BID PRN pain/spasm 08/31/23 08/31/23 History dexlansoprazole 60 mg 60 mg PO QAM 08/31/23 08/31/23 History capsule,biphase delayed release diphenhydramine HCl 25 mg tablet 25 - 50 mg PO HS PRN Allergy 08/31/23 08/31/23 History (Benadryl Allergy) Symptoms duloxetine 30 mg capsule,delayed 90 mg PO DAILY 08/31/23 08/31/23 History release eletriptan 40 mg tablet (Relpax) 40 mg PO UD 08/31/23 08/31/23 History epinephrine 0.3 mg/0.3 mL 0.3 mg IM UD PRN Allergic 08/31/23 08/31/23 History injection, auto-injector Reaction,severe folic acid 1 mg tablet 1 mg PO 6XWK 08/31/23 08/31/23 History galcanezumab-gnlm 120 mg/mL 120 mg subcut MONTHLY 08/31/23 08/31/23 History subcutaneous pen injector (Emgality Pen) hydroxychloroquine 200 mg tablet 200 mg PO BID 08/31/23 08/31/23 History levocetirizine 5 mg tablet (Xyzal) 5 mg PO .ON HOLD AT PRESENT 08/31/23 08/31/23 History magnesium oxide 400 mg PO DAILY 08/31/23 08/31/23 History methotrexate sodium 2.5 mg tablet 20 mg PO WK 08/31/23 08/31/23 History methylprednisolone 0 mg PO UD y 08/31/23 08/31/23 History multivit,Ca,tej-beko-OJ-guarana-caff 1 tab PO DAILY 08/31/23 08/31/23 History 18 mg iron-400 mcg-180 mg tablet potassium chloride 20 mEq 20 meq PO QAM 08/31/23 08/31/23 History tablet,extended release(part/cryst) (Klor-Con M) prednisone 10 mg tablet 0 mg PO UD PRN RA flares 08/31/23 08/31/23 History promethazine 12.5 mg tablet 6.25 mg PO Q6 PRN Nausea/vomiting 08/31/23 08/31/23 History topiramate 25 mg tablet 25 mg PO AMHS 08/31/23 08/31/23 History topiramate 50 mg tablet 50 mg PO AMHS 08/31/23 08/31/23 History apixaban 5 mg tablet 5 mg PO BID #28 tabs 09/05/23 Rx apixaban 5 mg tablet 5 mg PO BID #60 tabs 09/05/23 Rx clonazepam 1 mg tablet 1 mg PO BID #10 tabs 09/05/23 Rx oxycodone 5 mg tablet 5 mg PO Q6H PRN severe pain #20 09/05/23 Rx tabs Hospital Stay Data Consultations 08/31/23 18:59 ED Decision to Admit Stat 08/31/23 21:13 Consult Psychiatry Routine 09/01/23 00:06 Consult Orthopedic Surgery Routine HIM [Consult Health Information Management] Routine 09/01/23 01:16 HIM [Consult Health Information Management] Routine 09/03/23 17:09 Consult Orthopedic Surgery Routine 09/03/23 17:10 Consult Pain Management Routine Diagnostic Imagining Performed 08/31/23 16:29 CT angio chest PE protocol Stat US venous doppler LE RT Stat 08/31/23 20:59 CT hip RT wo con Stat 09/02/23 07:22 MR hip RT wo con Routine 09/04/23 US liver Routine Pending Results Patient Have Any Pending Studies at Discharge: No Discharge Instructions Given to Patient (Per Discharging Provider) Please take all medications as instructed on discharge list below. Please followup closely with your primary care physician to touch base after returning home. They will be able to provide you for refills of all medications. Repeat lab work is also recommended in one week for your liver enzymes to ensure they have resolved to normal levels. Until these have resolved back to baseline, please hold off taking the methotrexate. It was a pleasure taking care of you! Please call if you have any questions or problems. You can reach a [facility] hospitalist on duty at [facility] 24 hours a day by calling [phone]. Take care of yourself. Robyn Mercado, [facility] Hospitalist Total Time Total Time Spent Total Time Spent (In Minutes): 60
--- NOTE | 2023-09-05 14:42 | Electrocardiogram Report ---
Test Reason : Blood Pressure : / mmHG Vent. Rate : 082 BPM Atrial Rate : 082 BPM P-R Int : 142 ms QRS Dur : 084 ms QT Int : 386 ms P-R-T Axes : 040 030 028 degrees QTc Int : 450 ms Normal sinus rhythm Low voltage QRS Borderline ECG When compared with ECG of 31-AUG-2023 16:37, No significant change was found Confirmed by Fly Rogers ([id number]) on 09/05/2023 2:41:59 PM Referred By: REFERRED SELF Confirmed By:Fly Rogers
[2023-09-08] MEDS ORDERED: metHOTREXate sodium 2.5 MG TAB PO SCH (21:00)
== END 2023-09-05 15:25 | disposition home or self-care (01) | DRG 299 ==
LOC: ED 16:16 → 2N 21:11 → MERGE 21:11 → SUATTDRO 21:11 → 2N 22:21